=== PATIENT | female | born 1980 ===

== ENCOUNTER 2017-01-31 17:41 | Inpatient (IN) | payer OTHER ==
--- NOTE | 2017-01-31 19:44 | C.PDOC ---
History Of Present Illness 36 y/o female presents to ED with complaints of abdominal pain and vomiting since yesterday. Pt also with abnormal labs done 4 days ago; elevated total bilirubin, liver enzymes and alkaline phosphatase. Denies fever, chest pain, SOB or any other complaints. Time Seen by Provider: 01/31/17 19:43 Chief Complaint (Nursing): Abdominal Pain History Per: Patient History/Exam Limitations: no limitations Onset/Duration Of Symptoms: Hrs Current Symptoms Are (Timing): Still Present Severity: Moderate Pain Scale Rating Of: 5 Location Of Pain/Discomfort: Diffuse Radiation Of Pain To:: None Quality Of Discomfort: "Pain" Associated Symptoms: Vomiting. denies: Fever, Chest Pain Exacerbating Factors: None Alleviating Factors: None Recent travel outside of the [place]: No Past Medical History Reviewed: Historical Data, Nursing Documentation, Vital Signs Vital Signs: Last Vital Signs Temp 97.6 F 01/31/17 21:01 Pulse 65 01/31/17 21:01 Resp 18 01/31/17 21:01 BP 100/66 01/31/17 21:01 Pulse Ox 97 01/31/17 21:18 Family History: States: Unknown Family Hx - Social History Hx Tobacco Use: No Hx Alcohol Use: No Hx Substance Use: No - Immunization History Hx Tetanus Toxoid Vaccination: No Hx Influenza Vaccination: No Hx Pneumococcal Vaccination: No Review Of Systems Constitutional: Negative for: Fever, Chills Eyes: Negative for: Vision Change Cardiovascular: Negative for: Chest Pain Respiratory: Negative for: Shortness of Breath Gastrointestinal: Positive for: Vomiting, Abdominal Pain Genitourinary: Negative for: Dysuria Musculoskeletal: Negative for: Back Pain Skin: Positive for: Jaundice. Negative for: Rash, Lesions Neurological: Negative for: Weakness Psych: Negative for: Anxiety Physical Exam - Physical Exam Appears: Non-toxic, No Acute Distress Skin: Warm, Dry, No Rash Head: Atraumatic, Normacephalic Eye(s): bilateral: Normal Inspection, Scleral Icterus Oral Mucosa: Moist Neck: Supple Chest: Symmetrical Cardiovascular: Rhythm Regular, No Murmur Respiratory: No Rales, No Rhonchi, No Wheezing Gastrointestinal/Abdominal: Soft, Tenderness (midepigastric and RUQ), No Guarding, No Rebound Back: Normal Inspection Extremity: No Tenderness Extremity: Bilateral: Atraumatic Neurological/Psych: Oriented x3, Normal Speech Gait: Steady ED Course And Treatment - Laboratory Results Result Diagrams: 01/31/17 20:12 01/31/17 20:12 O2 Sat by Pulse Oximetry: 97 (room air) Pulse Ox Interpretation: Normal Disposition Discussed With DrYeny: Andi Dinero Comment: accepted the pt on his service and took over the care at 10:49 PM Doctor Will See Patient In The: ED Counseled Patient/Family Regarding: Studies Performed, Diagnosis - Disposition Disposition: HOSPITALIZED Disposition Time: 19:44 Condition: FAIR - POA Present On Arrival: Poor Glycemic Control - Clinical Impression Clinical Impression: Nausea, Jaundice, Abdominal pain, Cholelithiasis - Scribe Statement The provider has reviewed the documentation as recorded by the Duong Ramírez Provider Attestation: All medical record entries made by the Duong were at my direction and personally dictated by me. I have reviewed the chart and agree that the record accurately reflects my personal performance of the history, physical exam, medical decision making, and the department course for this patient. I have also personally directed, reviewed, and agree with the discharge instructions and disposition. Decision To Admit - Pt Status Changed To: Hospital Disposition Of: Inpatient - Admit Certification Admit to Inpatient:: After my assessment, the patient will require hospitalization for at least two midnights. This is because of the severity of symptoms shown, intensity of services needed, and/or the medical risk in this patient being treated as an outpatient. - InPatient: Physician Admission Certification:: After my assessment, the patient will require hospitalization for at least two midnights. This is because of the severity of symptoms shown, intensity of services needed, and/or the medical risk in this patient being treated as an outpatient. - . Bed Request Type: Regular Admitting Physician: Andi Dinero Patient Diagnosis: Nausea, Abdominal pain, Jaundice
[2017-01-31] MEDS ORDERED: Sodium Chloride 0.9% 1,000 ML IV ONE (19:45)
[2017-01-31 20:17] LABS: BASO # 0.1 K/uL (0.0-0.2); BASO % 0.9 % (0.0-2.0); EOS # 0.2 K/uL (0.0-0.7); EOS % 2.6 % (0.0-4.0); HEMATOCRIT 34.3 % (34.0-47.0); LYMPH # 1.3 K/uL (1.0-4.3); LYMPH % 17.3 % (20.0-40.0); MEAN CELL VOLUME 85.3 fL (81.0-99.0); MEAN CORPUSCULAR HEMOGLOBIN 28.9 pg (27.0-31.0); MEAN CORPUSCULAR HGB CONC 33.9 g/dL (33.0-37.0); MEAN PLATELET VOLUME 8.6 fL (7.2-11.7); MONO # 0.6 K/uL (0.0-0.8); MONO % 7.8 % (0.0-10.0); NRBC % 0.1 % (0.0-2.0); RED CELL DISTRIBUTION WIDTH 17.4 % (11.5-14.5); WHITE BLOOD COUNT 7.3 K/uL (4.8-10.8)
[2017-01-31 20:25] LABS: CHLORIDE 102 mmol/L (98-107)
[2017-01-31 20:26] LABS: POTASSIUM 3.6 mmol/L (3.6-5.2); SODIUM 139 mmol/L (132-148)
[2017-01-31 20:28] LABS: ALB/GLOB RATIO 1.1 (1.0-2.1); ALKALINE PHOSPHATASE 969 U/L (38-126); AST/SGOT 292 U/L (14-36); BILIRUBIN,TOTAL 8.1 mg/dL (0.2-1.3); BLOOD UREA NITROGEN 12 mg/dL (7-17); CARBON DIOXIDE 24 mmol/L (22-30); GFR AFRICAN-AMERICAN > 60; TOTAL PROTEIN 7.8 g/dL (6.3-8.3)
[2017-01-31 20:29] LABS: ALT/SGPT 307 U/L (9-52); CALCIUM 9.2 mg/dl (8.6-10.4); GLUCOSE,RANDOM 106 mg/dL (65-105)
[2017-01-31 20:42] LABS: RBC URINE 4 /hpf (0-3); URINE BACTERIA FEW (<OCC); URINE BILIRUBIN 2+ (NEGATIVE); URINE BLOOD NEGATIVE (NEGATIVE); URINE COLOR Amber (YELLOW); URINE GLUCOSE (UA) NORMAL (Normal); URINE KETONE 1+ mg/dL (NEGATIVE); URINE PROTEIN 1+ mg/dL (NEGATIVE); WBC URINE 8 /hpf (0-5)
[2017-01-31 20:43] LABS: URINE LEUKOCYTE ESTERASE TRACE Leu/uL (Negative)
--- NOTE | 2017-01-31 22:16 | US ---
EXAM: US Abdomen Limited, Right Upper Quadrant CLINICAL HISTORY: 36 years old, female; Pain; Abdominal pain; Generalized; Additional info: Ruq 8.1 bilirubin, elevated liver enzymes, pain TECHNIQUE: Real-time ultrasound of the right upper quadrant with image documentation. COMPARISON: No relevant prior studies available. FINDINGS: Liver: Hepatic steatosis. Liver measures 14.2 CM longitudinally. Moderate intrahepatic bile duct dilatation. Portal vein is patent with normal direction of flow. Gallbladder: Gallbladder wall measures 3 mm. Multiple stones within the gallbladder. Common bile duct: Common bile duct is dilated measuring 9.6 mm. Pancreas: Pancreatic duct is not dilated. Right kidney: Right kidney measures 9.8 CM longitudinally. No stones. IMPRESSION: 1. Cholelithiasis with intrahepatic and extrahepatic bile duct dilatation. Cannot exclude distal common duct stones. Consider MRCP for further evaluation. 2. Remainder of findings as above.
--- NOTE | 2017-02-01 01:07 | CP.PCM.HP ---
History of Present Illness - History of Present Illness History of Present Illness: CC: abdominal pain and rash HPI: Patient is a 36 year old female with no PMHx presents with 2 weeks of epigastric pain. Patient reports the pain began with no inciting event and was located in the middle of her abdomen in the epigastric region. Pain was a 6/10 pressure like in nature that was intermittent and worse with food. Patient also had associated nausea and a decreased appetite. 1 and a half weeks ago patient started to notice she was becoming jaundiced and was having pruritus. 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 She also noticed some linear ecchymosis on the sides of her thighs with no injury or trauma to the area that would come and go. The ecchymosis were like linear bands. Patient saw Dr Novak on Monday and had routine blood work and was given hydroxyzine and ciprofloxacin. On the day of admisison, patient had two episodes of nonbloody nonbilious emesis and worsening abdominal pain. Dr Novak also sent her in due to elevated total bilirubin, liver enzymes and alkaline phosphatase which was noted on her routine lab work from Monday. Patient denied fever, chills, diaphoresis, headaches, dizziness, lightheadedness, change in vision, change in hearing, sore throat, dysphagia, chest pain, palpitations, SOB , cough, hematemesis, diarrhea, constipation, hematochezia, melena, dysuria, leg pain, leg swelling, bleeding, travel, sick contacts, recent illness. 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 Patient denies having colonoscopy or EGD in the past. 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 Present on Admission - Present on Admission Any Indicators Present on Admission: No Review of Systems - Constitutional Constitutional: As Per HPI, Weight Loss, Weakness. absent: Chills, Fever, Headache, Increased Appetite - EENT Eyes: As Per HPI. absent: Change in Vision Ears: As Per HPI. absent: Tinnitus, Dizziness Nose/Mouth/Throat: As Per HPI. absent: Dysphagia, Sore Throat - Cardiovascular Cardiovascular: As Per HPI. absent: Chest Pain, Dyspnea, Dyspnea on Exertion, Edema - Respiratory Respiratory: As Per HPI. absent: Cough, Dyspnea on Exertion, Wheezing, Chest Congestion - Gastrointestinal Gastrointestinal: As Per HPI, Abdominal Pain, Nausea, Vomiting, Other (traffic circuit engineer colored stool). absent: Coffee Ground Emesis, Constipation, Diarrhea, Hematochezia, Loose Stools, Melena - Genitourinary Genitourinary: As Per HPI, Urinary Frequency. absent: Dysuria, Flank Pain, Hematuria, Pyuria, Nocturia - Musculoskeletal Musculoskeletal: As Per HPI, Back Pain. absent: Numbness, Tingling - Integumentary Integumentary: As Per HPI, Pruritus, Unusual Bruising, Jaundice - Neurological Neurological: As Per HPI. absent: Tingling, Weakness - Psychiatric Psychiatric: As Per HPI. absent: Anxiety, Depression - Endocrine Endocrine: As Per HPI. absent: Palpitations, Polydipsia, Polyphagia, Polyuria - Hematologic/Lymphatic Hematologic: As Per HPI, Easy Bruising. absent: Easy Bleeding, Lymphadenopathy Past Patient History - Infectious Disease Hx of Infectious Diseases: None - Past Medical History & Family History Past Medical History?: No - Past Social History Smoking Status: Never Smoked - CARDIAC Hx Cardiac Disorders: No - PULMONARY Hx Respiratory Disorders: No - NEUROLOGICAL Hx Neurological Disorder: No - HEENT Hx HEENT Problems: No - RENAL Hx Chronic Kidney Disease: No - ENDOCRINE/METABOLIC Hx Endocrine Disorders: No - HEMATOLOGICAL/ONCOLOGICAL Hx Blood Disorders: No - INTEGUMENTARY Hx Dermatological Problems: No - MUSCULOSKELETAL/RHEUMATOLOGICAL Hx Musculoskeletal Disorders: No Hx Falls: No - GASTROINTESTINAL Hx Gastrointestinal Disorders: No - GENITOURINARY/GYNECOLOGICAL Hx Genitourinary Disorders: No - PSYCHIATRIC Hx Substance Use: No - SURGICAL HISTORY Hx Surgeries: No - ANESTHESIA Hx Anesthesia: No Hx Anesthesia Reactions: No Hx Malignant Hyperthermia: No Meds Allergies/Adverse Reactions: Allergies Allergy/AdvReac Type Severity Reaction Status Date / Time No Known Allergies Allergy Verified 01/31/17 18:03 Physical Exam - Constitutional Appears: Non-toxic, No Acute Distress - Head Exam Head Exam: ATRAUMATIC, NORMAL INSPECTION, NORMOCEPHALIC - Eye Exam Eye Exam: EOMI, PERRL, Scleral icterus. absent: Conjunctival injection, Normal appearance Pupil Exam: NORMAL ACCOMODATION, PERRL - ENT Exam ENT Exam: Mucous Membranes Moist - Neck Exam Neck exam: Positive for: Full Rom, Normal Inspection. Negative for: Lymphadenopathy, Tenderness - Respiratory Exam Respiratory Exam: Clear to Auscultation Bilateral, NORMAL BREATHING PATTERN. absent: Accessory Muscle Use, Rales, Rhonchi, Wheezes, Respiratory Distress - Cardiovascular Exam Cardiovascular Exam: REGULAR RHYTHM, RRR, +S1, +S2. absent: Systolic Murmur - GI/Abdominal Exam GI & Abdominal Exam: Normal Bowel Sounds, Soft, Tenderness (midepigastric and RUQ). absent: Distended, Firm, Guarding, Rigid - Rectal Exam Rectal Exam: Deferred - Extremities Exam Extremities exam: Positive for: normal capillary refill, pedal pulses present. Negative for: pedal edema Additional comments: + ecchymosis on side of RLE and LLE worse on the right- tender to palpation - Back Exam Back exam: NORMAL INSPECTION. absent: CVA tenderness (L), CVA tenderness (R), rash noted, tenderness - Neurological Exam Neurological exam: Alert, CN II-XII Intact, Oriented x3 - Psychiatric Exam Psychiatric exam: Normal Affect, Normal Mood - Skin Skin Exam: Dry, Intact, Warm Additional comments: jaundiced Results - Vital Signs Recent Vital Signs: Last Vital Signs Temp 98.1 F 01/31/17 23:40 Pulse 73 01/31/17 23:40 Resp 20 01/31/17 23:40 BP 100/59 L 01/31/17 23:40 Pulse Ox 100 01/31/17 23:40 - Labs Result Diagrams: 01/31/17 20:12 01/31/17 20:12 Assessment & Plan - Assessment and Plan (Free Text) Assessment: 36 year old female with no PMHx presents with 2 weeks of epigastric pain Plan: Obstructive jaundice -U/S abdomen: cholelithiasis with intrahepatic and extrahepatic bile duct dilatation. Cannot exclude distal common duct stones. Consider MRCP for further eval. -TBili 8.2 -AST 292 -ALT 307 -Alk Phosphatase 969 -Rocephin 1gm ivpb daily -Benadryl 25mg ivp q6 prn pruritus -Protonix 40mg ivp daily -NPO -D51/2NS with 20KCl @ 100cc/hr -f/u CT Abdomen/pelvis -General surgery consult: Dr. Worthy -GI consult: Dr. Lama UTI -UA +leuk esterase and +bacteria -f/u urine culture -f/u blood culture -Rocephin 1gm ivpb daily PPX -NPO -D51/2NS with 20KCl @ 100cc/hr -Protonix 40mg ivp daily -VTE ppx held for possible preop -SCDs Case discussed with Dr. Bar Harrell PGY1
[2017-02-01] MEDS: Potassium Ch 20mEq in D5-1/2NS 1,000 ML IV SCH ×3 (02:00→21:10)
[2017-02-01 03:21] LABS: BASO # 0.1 K/uL (0.0-0.2); BASO % 0.8 % (0.0-2.0); EOS # 0.3 K/uL (0.0-0.7); EOS % 3.8 % (0.0-4.0); HEMATOCRIT 33.3 % (34.0-47.0); LYMPH # 1.3 K/uL (1.0-4.3); LYMPH % 19.1 % (20.0-40.0); MEAN CELL VOLUME 85.3 fL (81.0-99.0); MEAN CORPUSCULAR HEMOGLOBIN 28.3 pg (27.0-31.0); MEAN CORPUSCULAR HGB CONC 33.2 g/dL (33.0-37.0); MEAN PLATELET VOLUME 8.5 fL (7.2-11.7); MONO # 0.5 K/uL (0.0-0.8); MONO % 7.5 % (0.0-10.0); RED CELL DISTRIBUTION WIDTH 17.3 % (11.5-14.5)
[2017-02-01 03:47] LABS: CHLORIDE 106 mmol/L (98-107)
[2017-02-01 03:48] LABS: POTASSIUM 3.7 mmol/L (3.6-5.2); SODIUM 137 mmol/L (132-148)
[2017-02-01 03:50] LABS: ALB/GLOB RATIO 1.1 (1.0-2.1); AST/SGOT 244 U/L (14-36); BILIRUBIN,TOTAL 7.6 mg/dL (0.2-1.3); CARBON DIOXIDE 22 mmol/L (22-30); CHOLESTEROL 268 mg/dL (0-199); GFR AFRICAN-AMERICAN > 60
[2017-02-01 03:51] LABS: ALKALINE PHOSPHATASE 870 U/L (38-126); ALT/SGPT 261 U/L (9-52); BLOOD UREA NITROGEN 8 mg/dL (7-17); CALCIUM 8.7 mg/dl (8.6-10.4); GLUCOSE,RANDOM 97 mg/dL (65-105); PHOSPHOROUS 3.3 mg/dL (2.5-4.5)
--- NOTE | 2017-02-01 05:23 | CP.PCM.CON ---
<Astrid Byrd - Last Filed: 02/01/17 05:16> History of Present Illness - History of Present Illness History of Present Illness: Surgery Consult: Dr. Worthy Pt is a 36F with no PMHx who presented to with complaints of epigastric abdominal pain x 2 weeks. Pt states she started having epigastric/RUQ pain for the last 2 weeks that has gotten worse with time. She associates the pain with food intake and also admits to noticing dark urine and becoming jaundiced. Pt went to see her PMD on Monday and had blood work done which showed elevated T bili and liver enzymes. Pt was told to come to the ER. She admits to having nausea and 2 episodes of NBNB vomiting. She denies F/C, diarrhea, constipation, chest pain or SOB. In the ER, pt had an US of the GB which shows cholelithiasis with CBD measuring 9.6mm. Surgery consulted to evaluate. Currently, pt is resting comfortably in bed. States pain is slightly improved. Denies other complaints. PMHx: denies PSHx: denies SocialHx: denies smoking, EtOH/drugs NKDA Review of Systems - Review of Systems All systems: reviewed and no additional remarkable complaints except (as per HPI ) Past Patient History - Infectious Disease Hx of Infectious Diseases: None - Past Medical History & Family History Past Medical History?: No Past Family History: Reviewed and not pertinent - Past Social History Smoking Status: Never Smoked - CARDIAC Hx Cardiac Disorders: No - PULMONARY Hx Respiratory Disorders: No - NEUROLOGICAL Hx Neurological Disorder: No - HEENT Hx HEENT Problems: No - RENAL Hx Chronic Kidney Disease: No - ENDOCRINE/METABOLIC Hx Endocrine Disorders: No - HEMATOLOGICAL/ONCOLOGICAL Hx Blood Disorders: No - INTEGUMENTARY Hx Dermatological Problems: No - MUSCULOSKELETAL/RHEUMATOLOGICAL Hx Musculoskeletal Disorders: No Hx Falls: No - GASTROINTESTINAL Hx Gastrointestinal Disorders: No - GENITOURINARY/GYNECOLOGICAL Hx Genitourinary Disorders: No - PSYCHIATRIC Hx Substance Use: No - SURGICAL HISTORY Hx Surgeries: No - ANESTHESIA Hx Anesthesia: No Hx Anesthesia Reactions: No Hx Malignant Hyperthermia: No Meds Allergies/Adverse Reactions: Allergies Allergy/AdvReac Type Severity Reaction Status Date / Time No Known Allergies Allergy Verified 01/31/17 18:03 - Medications Medications: Current Medications Diphenhydramine HCl (Benadryl) 25 mg IVP Q6 PRN PRN Reason: Itching / Pruritus Ceftriaxone Sodium 1 gm/ (Sodium Chloride) 100 mls @ 100 mls/hr IVPB DAILY [facility] Potassium Chloride/Dextrose/Sod Cl (Potassium Chl 20 Meq In D5-1/2ns) 1,000 mls @ 100 mls/hr IV .Q10H [facility] Pantoprazole Sodium (Protonix Inj) 40 mg IVP DAILY [facility] Physical Exam - Constitutional Appears: Well, No Acute Distress - Head Exam Head Exam: ATRAUMATIC, NORMOCEPHALIC - Eye Exam Eye Exam: Scleral icterus - ENT Exam ENT Exam: Mucous Membranes Moist - Respiratory Exam Respiratory Exam: NORMAL BREATHING PATTERN - Cardiovascular Exam Cardiovascular Exam: RRR - GI/Abdominal Exam GI & Abdominal Exam: Guarding, Soft, Tenderness (RUG/epigastrium). absent: Distended, Rebound - Extremities Exam Extremities exam: Negative for: tenderness - Neurological Exam Neurological exam: Alert, Oriented x3 - Skin Skin Exam: Dry, Intact, Warm Results - Vital Signs Recent Vital Signs: Last Vital Signs Temp 98.2 F 02/01/17 05:00 Pulse 75 02/01/17 05:00 Resp 20 02/01/17 05:00 BP 123/60 02/01/17 05:00 Pulse Ox 99 02/01/17 05:00 - Labs Result Diagrams: 02/01/17 03:17 02/01/17 03:17 Labs: Laboratory Results - last 24 hr 02/01/17 02/01/17 02/01/17 03:17 03:17 03:17 WBC 7.0 RBC 3.90 Hgb 11.0 Hct 33.3 L MCV 85.3 MCH 28.3 MCHC 33.2 RDW 17.3 H Plt Count 329 MPV 8.5 Neut % (Auto) 68.8 Lymph % (Auto) 19.1 L [place] % (Auto) 7.5 Eos % (Auto) 3.8 Baso % (Auto) 0.8 Neut # 4.8 Lymph # 1.3 [place] # 0.5 Eos # 0.3 Baso # 0.1 Sodium 137 Potassium 3.7 Chloride 106 Carbon Dioxide 22 Anion Gap 12 BUN 8 Creatinine 0.5 L Est GFR ( Amer) > 60 Est GFR (Non-Af Amer) > 60 Random Glucose 97 Hemoglobin A1c 4.8 Calcium 8.7 Phosphorus 3.3 Magnesium 2.0 Total Bilirubin 7.6 H AST 244 H ALT 261 H Alkaline Phosphatase 870 H Total Protein 7.0 Albumin 3.7 Globulin 3.4 Albumin/Globulin Ratio 1.1 Triglycerides 111 D Cholesterol 268 H LDL Cholesterol Direct 147 H HDL Cholesterol 47 - Imaging and Cardiology US - abdomen Status: Image reviewed by me, Report reviewed by me Assessment & Plan - Assessment and Plan (Free Text) Assessment: 36F with cholelithiasis and probable choledocholithiasis Plan: - NPO - IVF, IV ABX - MRCP to eval biliary tree - GI consult - will follow - d/w Dr. Zaynab Byrd, PGY-2 Surgery <Alberto Worthy - Last Filed: 02/03/17 14:14> Meds - Medications Medications: Current Medications Diphenhydramine HCl (Benadryl) 25 mg IVP Q6 PRN PRN Reason: Itching / Pruritus Potassium Chloride/Dextrose/Sod Cl (Potassium Chl 20 Meq In D5-1/2ns) 1,000 mls @ 100 mls/hr IV .Q10H [facility] Last Admin: 02/03/17 03:01 Dose: Not Given Piperacillin Sod/Tazobactam (Sod 3.375 gm/ Sodium Chloride) 100 mls @ 200 mls/ hr IVPB Q8H [facility] [place] Last Admin: 02/03/17 05:15 Dose: 200 mls/hr Pantoprazole Sodium (Protonix Inj) 40 mg IVP DAILY [facility] [place] Last Admin: 02/03/17 10:47 Dose: 40 mg Saccharomyces Boulardii (Florastor) 250 mg PO BID [facility] [place] Last Admin: 02/03/17 10:47 Dose: 250 mg Results - Vital Signs Recent Vital Signs: Last Vital Signs Temp 97.9 F 02/03/17 08:00 Pulse 65 02/03/17 08:00 Resp 19 02/03/17 08:00 BP 104/66 02/03/17 08:00 Pulse Ox 98 02/03/17 08:00 - Labs Result Diagrams: 02/03/17 08:36 02/03/17 08:36 Labs: Laboratory Results - last 24 hr 02/01/17 02/03/17 02/03/17 14:45 04:09 08:36 WBC 7.6 D RBC 3.63 L Hgb 10.6 L Hct 31.6 L MCV 86.9 MCH 29.3 MCHC 33.7 RDW 17.8 H Plt Count 352 MPV 9.5 Neut % (Auto) 86.4 H Lymph % (Auto) 9.8 L [place] % (Auto) 3.6 Eos % (Auto) 0.0 Baso % (Auto) 0.2 Neut # 6.6 Lymph # 0.7 L [place] # 0.3 Eos # 0.0 Baso # 0.0 Neutrophils % (Manual) 86 H Band Neutrophils % 4 H Lymphocytes % (Manual) 7 L Monocytes % (Manual) 3 Platelet Estimate Normal Hypochromasia (manual) Slight Anisocytosis (manual) Slight PT INR Sodium Potassium Chloride Carbon Dioxide Anion Gap BUN Creatinine Est GFR ( Amer) Est GFR (Non-Af Amer) Random Glucose Calcium Phosphorus Magnesium Total Bilirubin AST ALT Alkaline Phosphatase Total Protein Albumin Globulin Albumin/Globulin Ratio Urine HCG, Qual Negative Smooth Muscle Ab Titer 1:20 H Anti-Smooth Muscle Ab Positive H 02/03/17 02/03/17 08:36 08:36 WBC RBC Hgb Hct MCV MCH MCHC RDW Plt Count MPV Neut % (Auto) Lymph % (Auto) [place] % (Auto) Eos % (Auto) Baso % (Auto) Neut # Lymph # [place] # Eos # Baso # Neutrophils % (Manual) Band Neutrophils % Lymphocytes % (Manual) Monocytes % (Manual) Platelet Estimate Hypochromasia (manual) Anisocytosis (manual) PT 12.3 H INR 1.1 Sodium 136 Potassium 4.0 Chloride 101 Carbon Dioxide 23 Anion Gap 16 BUN 12 Creatinine 0.5 L Est GFR ( Amer) > 60 Est GFR (Non-Af Amer) > 60 Random Glucose 134 H Calcium 8.7 Phosphorus 2.9 Magnesium 1.8 Total Bilirubin 4.3 H AST 128 H D ALT 177 H D Alkaline Phosphatase 701 H Total Protein 7.0 Albumin 3.6 Globulin 3.4 Albumin/Globulin Ratio 1.0 Urine HCG, Qual Smooth Muscle Ab Titer Anti-Smooth Muscle Ab Attending/Attestation - Attestation I have personally seen and examined this patient.: Yes I have fully participated in the care of the patient.: Yes I have reviewed all pertinent clinical information: Yes Notes (Text): 02/03/17 14:13 Pt was seen and examined at bedside on 02/01/17 Agree with above note and assessment Pt with acute cholecystitis and cholelithiasis and CBD Stone MRCP GI consult NPO, IVF C/w IV antibiotics Plan d.w pt in detail Risk and benefit explained in detail
--- NOTE | 2017-02-01 09:51 | CP.PCM.CON ---
History of Present Illness - History of Present Illness History of Present Illness: 36 yo female admitted with epigastric/ruq pain and vomiting. Sono revealed gallstones and dilated CBD. Lft's are elevated. Patient says she is aware fo stone in gallbladder in the past but not advised for surgery. No other medical history. Review of Systems - Cardiovascular Cardiovascular: absent: Chest Pain, Chest Pain at Rest, Dyspnea, Orthopnea - Respiratory Respiratory: absent: Cough, Chest Congestion - Gastrointestinal Gastrointestinal: As Per HPI, Abdominal Pain, Vomiting. absent: Constipation, Cramping, Dysphagia, Hematemesis, Melena, Odynophagia Past Patient History - Infectious Disease Hx of Infectious Diseases: None - Past Medical History & Family History Past Medical History?: No Past Family History: Reviewed and not pertinent - Past Social History Smoking Status: Never Smoked Alcohol: None Drugs: Denies - CARDIAC Hx Cardiac Disorders: No - PULMONARY Hx Respiratory Disorders: No - NEUROLOGICAL Hx Neurological Disorder: No - HEENT Hx HEENT Problems: No - RENAL Hx Chronic Kidney Disease: No - ENDOCRINE/METABOLIC Hx Endocrine Disorders: No - HEMATOLOGICAL/ONCOLOGICAL Hx Blood Disorders: No - INTEGUMENTARY Hx Dermatological Problems: No - MUSCULOSKELETAL/RHEUMATOLOGICAL Hx Musculoskeletal Disorders: No Hx Falls: No - GASTROINTESTINAL Hx Gastrointestinal Disorders: No - GENITOURINARY/GYNECOLOGICAL Hx Genitourinary Disorders: No - PSYCHIATRIC Hx Substance Use: No - SURGICAL HISTORY Hx Surgeries: No - ANESTHESIA Hx Anesthesia: No Hx Anesthesia Reactions: No Hx Malignant Hyperthermia: No Meds Allergies/Adverse Reactions: Allergies Allergy/AdvReac Type Severity Reaction Status Date / Time No Known Allergies Allergy Verified 01/31/17 18:03 - Medications Medications: Current Medications Diphenhydramine HCl (Benadryl) 25 mg IVP Q6 PRN PRN Reason: Itching / Pruritus Ceftriaxone Sodium 1 gm/ (Sodium Chloride) 100 mls @ 100 mls/hr IVPB DAILY [facility] Potassium Chloride/Dextrose/Sod Cl (Potassium Chl 20 Meq In D5-1/2ns) 1,000 mls @ 100 mls/hr IV .Q10H [facility] Last Admin: 02/01/17 02:00 Dose: 100 mls/hr Pantoprazole Sodium (Protonix Inj) 40 mg IVP DAILY [facility] Physical Exam - Constitutional Appears: No Acute Distress - Head Exam Head Exam: ATRAUMATIC, NORMOCEPHALIC - Eye Exam Eye Exam: EOMI, PERRL - Respiratory Exam Respiratory Exam: NORMAL BREATHING PATTERN - Cardiovascular Exam Cardiovascular Exam: REGULAR RHYTHM, +S1 - GI/Abdominal Exam GI & Abdominal Exam: Normal Bowel Sounds, Soft, Tenderness Additional comments: RUQ tenderness and guarding to deep palpation - Rectal Exam Rectal Exam: Deferred - Extremities Exam Extremities exam: Positive for: normal inspection - Neurological Exam Neurological exam: Alert, Oriented x3 - Psychiatric Exam Psychiatric exam: Normal Affect, Normal Mood - Skin Skin Exam: Dry, Warm Results - Vital Signs Recent Vital Signs: Last Vital Signs Temp 98.7 F 02/01/17 07:50 Pulse 72 02/01/17 07:50 Resp 16 02/01/17 07:50 BP 105/67 02/01/17 07:50 Pulse Ox 97 02/01/17 07:50 - Labs Result Diagrams: 02/01/17 03:17 02/01/17 03:17 Labs: Laboratory Results - last 24 hr 02/01/17 02/01/17 02/01/17 03:17 03:17 03:17 WBC 7.0 RBC 3.90 Hgb 11.0 Hct 33.3 L MCV 85.3 MCH 28.3 MCHC 33.2 RDW 17.3 H Plt Count 329 MPV 8.5 Neut % (Auto) 68.8 Lymph % (Auto) 19.1 L [place] % (Auto) 7.5 Eos % (Auto) 3.8 Baso % (Auto) 0.8 Neut # 4.8 Lymph # 1.3 [place] # 0.5 Eos # 0.3 Baso # 0.1 Sodium 137 Potassium 3.7 Chloride 106 Carbon Dioxide 22 Anion Gap 12 BUN 8 Creatinine 0.5 L Est GFR ( Amer) > 60 Est GFR (Non-Af Amer) > 60 Random Glucose 97 Hemoglobin A1c 4.8 Calcium 8.7 Phosphorus 3.3 Magnesium 2.0 Total Bilirubin 7.6 H AST 244 H ALT 261 H Alkaline Phosphatase 870 H Total Protein 7.0 Albumin 3.7 Globulin 3.4 Albumin/Globulin Ratio 1.1 Triglycerides 111 D Cholesterol 268 H LDL Cholesterol Direct 147 H HDL Cholesterol 47 - Imaging and Cardiology US - abdomen Status: Image reviewed by me, Report reviewed by me Assessment & Plan (1) Abnormal transaminases Status: Acute (2) RUQ pain Assessment and Plan: Pain and lab findings likely due to cholelithiasis/cholecystitis and possible passage of stone into the CBD. Agree with MRCP to evaluate duct Needs surgical consult for [place] with [facility] If MRCP is positive would also consult Dr Gordon for interventional GI/ERCP if needed. (would call now to make him aware of case) Monitor LFTs Consider addition of antibiotics. NPO Status: Acute (3) Cholelithiasis Status: Acute
--- NOTE | 2017-02-01 12:49 | CP.PCM.PN ---
<Lizzeth Quinonez DO - Last Filed: 02/01/17 13:34> Subjective - Date & Time of Evaluation Date of Evaluation: 02/01/17 Time of Evaluation: 07:50 - Subjective Subjective: PGY1 Progress note for Dr. Kidd Patient seen and examined. Patient complaining of epigastric pain but states she feels better than when she arrived at the hospital. Patient reports 2 week history of abdominal pain that had gotten worse yesterday and prompted ER visit. Patient also reports urinary frequency but denies dysuria for 1 week. Objective - Vital Signs/Intake and Output Vital Signs (last 24 hours): Temp Pulse Resp BP Pulse Ox 98.7 F 72 16 105/67 97 02/01/17 07:50 02/01/17 07:50 02/01/17 07:50 02/01/17 07:50 02/01/17 07:50 - Medications Medications: Current Medications Diphenhydramine HCl (Benadryl) 25 mg IVP Q6 PRN PRN Reason: Itching / Pruritus Ceftriaxone Sodium 1 gm/ (Sodium Chloride) 100 mls @ 100 mls/hr IVPB DAILY [facility] Last Admin: 02/01/17 10:53 Dose: 100 mls/hr Potassium Chloride/Dextrose/Sod Cl (Potassium Chl 20 Meq In D5-1/2ns) 1,000 mls @ 100 mls/hr IV .Q10H [facility] Last Admin: 02/01/17 11:30 Dose: Not Given Pantoprazole Sodium (Protonix Inj) 40 mg IVP DAILY [facility] Last Admin: 02/01/17 10:54 Dose: 40 mg - Labs Labs: 02/01/17 03:17 02/01/17 03:17 PT 11.4 SECONDS (9.7-12.2) 01/31/17 20:12 INR 1.0 01/31/17 20:12 APTT 37 SECONDS (21-34) H 01/31/17 20:12 - Constitutional Appears: Non-toxic, No Acute Distress - Head Exam Head Exam: ATRAUMATIC, NORMOCEPHALIC - Eye Exam Eye Exam: EOMI, Scleral icterus - ENT Exam ENT Exam: Mucous Membranes Dry Additional comments: jaundice - Respiratory Exam Respiratory Exam: Clear to Ausculation Bilateral, NORMAL BREATHING PATTERN - Cardiovascular Exam Cardiovascular Exam: +S1, +S2 - GI/Abdominal Exam GI & Abdominal Exam: Soft, Tenderness (epigastric), Normal Bowel Sounds - Extremities Exam Extremities Exam: absent: Pedal Edema - Neurological Exam Neurological Exam: Alert, Awake - Psychiatric Exam Psychiatric exam: Normal Affect - Skin Skin Exam: Dry, Warm Assessment and Plan - Assessment and Plan (Free Text) Assessment: Obstructive jaundice -U/S abdomen: cholelithiasis with intrahepatic and extrahepatic bile duct dilatation. Cannot exclude distal common duct stones. CBD 9.6mm. Consider MRCP for further eval. -TBili 8.2 on admission, now 7.6 -AST 292 on admission, now 244 -ALT 307 on admission, now 261 -Alk Phosphatase 969 on admission, now 870 -Abx changed to zosyn as per GI -Benadryl 25mg ivp q6 prn pruritus -Protonix 40mg ivp daily -D51/2NS with 20KCl @ 100cc/hr -CT Abdomen/pelvis appears to show large calcified stone, official read pending -General surgery consult: Dr. Worthy MRCP cancelled in light of CT findings -GI consult: Dr. Mann- agree with MRCP, recommend consult for Dr. Gordon- plan for EUS/ ERCP tomorrow at [facility] -check hepatitis panel, ELROY, AMA, SMA, LKM-Ab, IgG UTI -UA +leuk esterase and +bacteria -f/u urine culture -f/u blood culture PPX -NPO after MN for ERCP -D51/2NS with 20KCl @ 100cc/hr -Protonix 40mg ivp daily -SCDs <Ines Kidd V - Last Filed: 02/01/17 20:08> Objective - Vital Signs/Intake and Output Vital Signs (last 24 hours): Temp Pulse Resp BP Pulse Ox 98 F 59 L 18 102/61 98 02/01/17 16:00 02/01/17 16:00 02/01/17 16:00 02/01/17 16:00 02/01/17 16:00 Intake and Output: 02/01/17 02/02/17 18:59 06:59 Intake Total 800 Balance 800 - Medications Medications: Current Medications Diphenhydramine HCl (Benadryl) 25 mg IVP Q6 PRN PRN Reason: Itching / Pruritus Potassium Chloride/Dextrose/Sod Cl (Potassium Chl 20 Meq In D5-1/2ns) 1,000 mls @ 100 mls/hr IV .Q10H [facility] Last Admin: 02/01/17 11:30 Dose: Not Given Piperacillin Sod/Tazobactam (Sod 3.375 gm/ Sodium Chloride) 100 mls @ 200 mls/ hr IVPB Q8H [facility] Last Admin: 02/01/17 14:49 Dose: 200 mls/hr Pantoprazole Sodium (Protonix Inj) 40 mg IVP DAILY [facility] Last Admin: 02/01/17 10:54 Dose: 40 mg Pneumococcal Polyvalent Vaccine (Pneumovax 23 Vaccine) 0.5 ml IM .ONCE ONE Stop: 02/03/17 10:01 Saccharomyces Boulardii (Florastor) 250 mg PO BID [facility] - Labs Labs: 02/01/17 03:17 02/01/17 03:17 PT 11.4 SECONDS (9.7-12.2) 01/31/17 20:12 INR 1.0 01/31/17 20:12 APTT 37 SECONDS (21-34) H 01/31/17 20:12 Attending/Attestation - Attestation I have personally seen and examined this patient.: Yes I have fully participated in the care of the patient.: Yes I have reviewed all pertinent clinical information, including history, physical exam and plan: Yes Notes (Text): Patient seen, examined and case discussed with day-time resident. Patient seen at bedside this morning reporting pruritus, new-onset obstructive jaundice, epigastric pain, and associated frequency about one week duration. Discussed with GI, Dr Mann, recommend for EUS/ERCP evaluation by Dr. Gordon Patient evaluated by Dr. Gordon's GI group later today, will go for an ERCP/EUS tomorrow at [facility] with possible lithothripsy General surgery (Dr. Worthy) on board-->evaluated the patient earlier this morning Assessment/Plan 1) Obstructive jaundice; Hyperbilirubinemia; Choledocholithasis * General surgery (Dr. Worthy) on help appreciated * GI (Dr. Mann) on consult-->help appreciated * GI (Dr. Gordon) on consult-->help appreciated * U/S abdomen (01/31/17): cholelithiasis with intrahepatic and extrahepatic bile duct dilatation. Cannot exclude distal common duct stones. CBD 9.6mm. Consider MRCP for further eval. Hepatic steatosis. Patient portal vein * CT Abdomen/Pelvis (02/01/17): multiple gallstones without CT evidence of acute cholecystitits. 1.7 cm stone seen at the cystic duct or at the mid portion of the common bile duct, mild to moderate intrahepatic biliary ductal dilatation. Otherwise no evidence of acute pathology in the abdomen/pelvis * Serologies: hepatitis panel: negative, ELROY, AMA, SMA, LKM-Ab, IgG * Benadryl 25mg ivp q6 prn pruritus * Protonix 40mg ivp daily * D51/2NS with 20KCl @ 100cc/hr 2) Frequency * UA +leuk esterase and +bacteria * f/u urine culture * f/u blood culture * Zosyn 3.375 IV Q 8 hours (active since 02/01/17) * Florastor 250mg PO bid 3) Transaminitis * U/S abdomen (01/31/17): cholelithiasis with intrahepatic and extrahepatic bile duct dilatation. Cannot exclude distal common duct stones. CBD 9.6mm. Consider MRCP for further eval. Hepatic steatosis. Patient portal vein * CT Abdomen/Pelvis (02/01/17): multiple gallstones without CT evidence of acute cholecystitits. 1.7 cm stone seen at the cystic duct or at the mid portion of the common bile duct, mild to moderate intrahepatic biliary ductal dilatation. Otherwise no evidence of acute pathology in the abdomen/pelvis * Serologies: hepatitis panel: negative, ELROY, AMA, SMA, LKM-Ab, IgG * Benadryl 25mg ivp q6 prn pruritus 4) Dyslipidemia * Will need diet and exercise modifications and re-evaluate lipid panel in 3-4 months 5) PPX * NPO after MN for ERCP/EUS/lithotripsy at [facility] * D51/2NS with 20KCl @ 100cc/hr * Protonix 40mg ivp daily * SCDs
--- NOTE | 2017-02-01 13:15 | CP.PCM.CON ---
<Arcadio Mcghee - Last Filed: 02/01/17 13:27> History of Present Illness - History of Present Illness History of Present Illness: PGY4 GI Fellow Consult Note Patient is a 36yo female with PMHx significant for anxiety/depression and gallstones who presented to the hospital with diffuse itching and abdominal pain. Two weeks ago patient states she suddenly developed diffuse pruritus and noticed she had jaundice but did not use any medications to alleviate her symptoms. It wasn't until 24H prior to admission that she developed epigastric pain, nausea and nonbilious vomiting. Patient does note that in the interim she had noted dark colored urine and visited her PCP, Dr Novak to be evaluated for this constellation of symptoms. He performed routine blood work with revealed a hyperbilirubinemia and given her new onset of pain, requested she come to the ED for further evaluation. She is noted to have hyperbilirubinemia and elevated LFTs (mixed picture) with gallstones and dilated CBD on U/S. There is no choledocolithiasis noted on U/S. Our service is consulted for evaluation for EUS /ERCP. PMHx: See HPI PSHx: Denies FHx: Father - kidney and lung disease, ; denies family hx of cancer or GI issues Social: Denies tobacco, EtOH or illicit drug use Endo: No prior endoscopic evaluations Review of Systems - Constitutional Constitutional: absent: Anorexia, Chills, Fever - EENT Eyes: absent: Change in Vision Nose/Mouth/Throat: absent: Sore Throat - Cardiovascular Cardiovascular: absent: Chest Pain, Dyspnea, Edema - Respiratory Respiratory: absent: Cough, Dyspnea, Excessive Mucous Production - Gastrointestinal Gastrointestinal: Abdominal Pain, Nausea, Vomiting. absent: Bloating, Constipation, Cramping, Diarrhea, Dyspepsia, Dysphagia, Heartburn, Hematemesis, Hematochezia, Loose Stools, Melena, Odynophagia - Genitourinary Genitourinary: Other (dark colored urine). absent: Dysuria, Urinary Frequency, Urinary Urgency - Musculoskeletal Musculoskeletal: absent: Back Pain, Neck Pain - Integumentary Integumentary: absent: New Lesions, Rash - Neurological Neurological: absent: Dizziness, Numbness, Focal Weakness - Psychiatric Psychiatric: Anxiety. absent: Depression - Endocrine Endocrine: absent: Polydipsia, Polyphagia, Polyuria - Hematologic/Lymphatic Hematologic: absent: Easy Bleeding, Easy Bruising, Lymphadenopathy Past Patient History - Infectious Disease Hx of Infectious Diseases: None - Past Medical History & Family History Past Medical History?: No Past Family History: Reviewed and not pertinent - Past Social History Smoking Status: Never Smoked Alcohol: None Drugs: Denies - CARDIAC Hx Cardiac Disorders: No - PULMONARY Hx Respiratory Disorders: No - NEUROLOGICAL Hx Neurological Disorder: No - HEENT Hx HEENT Problems: No - RENAL Hx Chronic Kidney Disease: No - ENDOCRINE/METABOLIC Hx Endocrine Disorders: No - HEMATOLOGICAL/ONCOLOGICAL Hx Blood Disorders: No - INTEGUMENTARY Hx Dermatological Problems: No - MUSCULOSKELETAL/RHEUMATOLOGICAL Hx Musculoskeletal Disorders: No Hx Falls: No - GASTROINTESTINAL Hx Gastrointestinal Disorders: No - GENITOURINARY/GYNECOLOGICAL Hx Genitourinary Disorders: No - PSYCHIATRIC Hx Substance Use: No - SURGICAL HISTORY Hx Surgeries: No - ANESTHESIA Hx Anesthesia: No Hx Anesthesia Reactions: No Hx Malignant Hyperthermia: No Meds Allergies/Adverse Reactions: Allergies Allergy/AdvReac Type Severity Reaction Status Date / Time No Known Allergies Allergy Verified 01/31/17 18:03 - Medications Medications: Current Medications Diphenhydramine HCl (Benadryl) 25 mg IVP Q6 PRN PRN Reason: Itching / Pruritus Ceftriaxone Sodium 1 gm/ (Sodium Chloride) 100 mls @ 100 mls/hr IVPB DAILY [facility] Last Admin: 02/01/17 10:53 Dose: 100 mls/hr Potassium Chloride/Dextrose/Sod Cl (Potassium Chl 20 Meq In D5-1/2ns) 1,000 mls @ 100 mls/hr IV .Q10H [facility] Last Admin: 02/01/17 11:30 Dose: Not Given Pantoprazole Sodium (Protonix Inj) 40 mg IVP DAILY [facility] Last Admin: 02/01/17 10:54 Dose: 40 mg Physical Exam - Constitutional Appears: No Acute Distress - Eye Exam Eye Exam: EOMI, PERRL, Scleral icterus - ENT Exam ENT Exam: Mucous Membranes Moist - Respiratory Exam Respiratory Exam: Clear to Auscultation Bilateral. absent: Rales, Rhonchi, Wheezes - Cardiovascular Exam Cardiovascular Exam: RRR, +S1, +S2 - GI/Abdominal Exam GI & Abdominal Exam: Normal Bowel Sounds, Soft, Tenderness (epigastric, RUQ). absent: Distended, Firm, Guarding, Organomegaly, Rigid - Extremities Exam Extremities exam: Positive for: normal inspection. Negative for: pedal edema - Neurological Exam Neurological exam: Alert, Oriented x3 - Psychiatric Exam Psychiatric exam: Normal Affect, Normal Mood - Skin Skin Exam: Dry, Warm Additional comments: jaundice Results - Vital Signs Recent Vital Signs: Last Vital Signs Temp 98.7 F 02/01/17 07:50 Pulse 72 02/01/17 07:50 Resp 16 02/01/17 07:50 BP 105/67 02/01/17 07:50 Pulse Ox 97 02/01/17 07:50 - Labs Result Diagrams: 02/01/17 03:17 02/01/17 03:17 Labs: Laboratory Results - last 24 hr 02/01/17 02/01/17 02/01/17 03:17 03:17 03:17 WBC 7.0 RBC 3.90 Hgb 11.0 Hct 33.3 L MCV 85.3 MCH 28.3 MCHC 33.2 RDW 17.3 H Plt Count 329 MPV 8.5 Neut % (Auto) 68.8 Lymph % (Auto) 19.1 L [place] % (Auto) 7.5 Eos % (Auto) 3.8 Baso % (Auto) 0.8 Neut # 4.8 Lymph # 1.3 [place] # 0.5 Eos # 0.3 Baso # 0.1 Sodium 137 Potassium 3.7 Chloride 106 Carbon Dioxide 22 Anion Gap 12 BUN 8 Creatinine 0.5 L Est GFR ( Amer) > 60 Est GFR (Non-Af Amer) > 60 Random Glucose 97 Hemoglobin A1c 4.8 Calcium 8.7 Phosphorus 3.3 Magnesium 2.0 Total Bilirubin 7.6 H AST 244 H ALT 261 H Alkaline Phosphatase 870 H Total Protein 7.0 Albumin 3.7 Globulin 3.4 Albumin/Globulin Ratio 1.1 Triglycerides 111 D Cholesterol 268 H LDL Cholesterol Direct 147 H HDL Cholesterol 47 Assessment & Plan - Assessment and Plan (Free Text) Assessment: Patient is a 36yo female with PMHx significant for anxiety/depression and gallstones who presented to the hospital with diffuse itching and abdominal pain. -Elevated LFTs and abdominal pain c/w obstructive jaundice 2/2 choledocolithiasis; r/o other obstructive lesion/malignancy -Cholelithiasis -Pruritus 2/2 above Plan: -U/S noted -CT A/P reviewed; appears to have large calcified stone in mid-CBD -MRCP cancelled in light of above findings -Recommend changing antibiotic coverage to Zosyn -Check Hepatitis serologies, ELROY, AMA, SMA, LKM-Ab, IgG level -NPO past MN with plan for EUS/ERCP tomorrow at [facility] -Analgesia/antiemetics PRN per primary service -Benadryl or atarax PRN for pruritus - Date & Time Date: 02/01/17 Time: 13:00 <Ward Bennett - Last Filed: 02/01/17 15:47> Meds - Medications Medications: Current Medications Diphenhydramine HCl (Benadryl) 25 mg IVP Q6 PRN PRN Reason: Itching / Pruritus Potassium Chloride/Dextrose/Sod Cl (Potassium Chl 20 Meq In D5-1/2ns) 1,000 mls @ 100 mls/hr IV .Q10H [facility] Last Admin: 02/01/17 11:30 Dose: Not Given Piperacillin Sod/Tazobactam (Sod 3.375 gm/ Sodium Chloride) 100 mls @ 200 mls/ hr IVPB Q8H [facility] Last Admin: 02/01/17 14:49 Dose: 200 mls/hr Pantoprazole Sodium (Protonix Inj) 40 mg IVP DAILY [facility] Last Admin: 02/01/17 10:54 Dose: 40 mg Results - Vital Signs Recent Vital Signs: Last Vital Signs Temp 98.7 F 02/01/17 07:50 Pulse 72 02/01/17 07:50 Resp 16 02/01/17 07:50 BP 105/67 02/01/17 07:50 Pulse Ox 97 02/01/17 07:50 - Labs Result Diagrams: 02/01/17 03:17 02/01/17 03:17 Labs: Laboratory Results - last 24 hr 02/01/17 02/01/17 02/01/17 03:17 03:17 03:17 WBC 7.0 RBC 3.90 Hgb 11.0 Hct 33.3 L MCV 85.3 MCH 28.3 MCHC 33.2 RDW 17.3 H Plt Count 329 MPV 8.5 Neut % (Auto) 68.8 Lymph % (Auto) 19.1 L [place] % (Auto) 7.5 Eos % (Auto) 3.8 Baso % (Auto) 0.8 Neut # 4.8 Lymph # 1.3 [place] # 0.5 Eos # 0.3 Baso # 0.1 Sodium 137 Potassium 3.7 Chloride 106 Carbon Dioxide 22 Anion Gap 12 BUN 8 Creatinine 0.5 L Est GFR ( Amer) > 60 Est GFR (Non-Af Amer) > 60 Random Glucose 97 Hemoglobin A1c 4.8 Calcium 8.7 Phosphorus 3.3 Magnesium 2.0 Total Bilirubin 7.6 H AST 244 H ALT 261 H Alkaline Phosphatase 870 H Total Protein 7.0 Albumin 3.7 Globulin 3.4 Albumin/Globulin Ratio 1.1 Triglycerides 111 D Cholesterol 268 H LDL Cholesterol Direct 147 H HDL Cholesterol 47 IgG 02/01/17 14:45 WBC RBC Hgb Hct MCV MCH MCHC RDW Plt Count MPV Neut % (Auto) Lymph % (Auto) [place] % (Auto) Eos % (Auto) Baso % (Auto) Neut # Lymph # [place] # Eos # Baso # Sodium Potassium Chloride Carbon Dioxide Anion Gap BUN Creatinine Est GFR ( Amer) Est GFR (Non-Af Amer) Random Glucose Hemoglobin A1c Calcium Phosphorus Magnesium Total Bilirubin AST ALT Alkaline Phosphatase Total Protein Albumin Globulin Albumin/Globulin Ratio Triglycerides Cholesterol LDL Cholesterol Direct HDL Cholesterol IgG 1023.7 Attending/Attestation - Attestation I have personally seen and examined this patient.: Yes I have fully participated in the care of the patient.: Yes I have reviewed all pertinent clinical information: Yes Notes (Text): 02/01/17 15:41 I have seen and examined patient with GI fellow. Agree with above documentation with the following additions. In brief, this is a 36 year old female with past medical history of depression who is sent to hospital by PMD after noting jaundice and elevated LFTs on outpatient bloodwork. Her symptoms began two weeks ago with her primary complaint being sudden onset intense pruritis and fatigue. Yesterday she developed new onset abdominal pain which she describes in epigastric region, non-radiating and associated with multiple episodes of non-bloody emesis. She also noted recent dark colored urine. She denies similar prior episodes, though she has been notified of gallstones in past. She denies sick contacts, weight loss, fever/chills. No prior endoscopic evaluation. Obstructive jaundice Pruritis Abdominal pain Transaminitis - CT imaging reviewed by me showing large stone in mid-cbd consistent with choledocholithiasis - Clear liquid diet as tolerated - Continue with antibiotic therapy, check blood culture results - Continue to monitor LFTs, fractionate bilirubin - Obtain hepatitis and autoimmune panel testing given atypical initial presentation of pruritis - Plan for EUS/ERCP +/- lithotripsy (given large size of stone visualized) at [place] tomorrow with Dr. Gordon. NPO after midnight.
--- NOTE | 2017-02-01 13:22 | CT ---
PROCEDURE: CT Abdomen and Pelvis without intravenous contrast HISTORY: obstructive jaundice COMPARISON: Comparison is made to the previous ultrasound dated 01/31/2017 TECHNIQUE: Axial and reformatted coronal and sagittal CT images of the abdomen and pelvis were obtained without IV or oral contrast administration.. Contrast Dose: 0 Radiation dose: Total exam DLP = 372.14 mGy-cm. This CT exam was performed using one or more of the following dose reduction techniques: Automated exposure control, adjustment of the mA and/or kV according to patient size, and/or use of iterative reconstruction technique. FINDINGS: LOWER THORAX: Unremarkable. LIVER: Mild to moderate intrahepatic biliary ductal dilatation. No evidence of mass lesion in the liver in this noncontrast study. GALLBLADDER AND BILE DUCTS: Multiple gallstones. There is approximately 1.7 centimeters stone at the proximal to mid common bile duct. The distal CBD is not dilated. PANCREAS: Unremarkable. No gross lesion or ductal dilatation. SPLEEN: Unremarkable. ADRENALS: Unremarkable. No mass. KIDNEYS AND URETERS: Unremarkable. No hydronephrosis. No solid mass. VASCULATURE: Unremarkable. No aortic aneurysm. BOWEL: Unremarkable. No obstruction. No gross mural thickening. APPENDIX: Unremarkable. Normal appendix. PERITONEUM: Unremarkable. No free fluid. No free air. LYMPH NODES: Unremarkable. No enlarged lymph nodes. BLADDER: Unremarkable. REPRODUCTIVE: IUD is seen in the uterus. The uterus is mildly enlarged. Trace amount of free fluid seen in the pelvis. BONES: No acute fracture. OTHER FINDINGS: None. IMPRESSION: Multiple gallstones without CT evidence of acute cholecystitis. 1.7 centimeter stone seen at the cystic duct or at the mid portion of the common bile duct. [id number] intrahepatic biliary ductal dilatation. Further assessment by MRCP may be obtained if clinically warranted. Otherwise no evidence of acute pathology in the abdomen and pelvis.
[2017-02-01] MEDS: Piperacillin/Tazobact 3.375 GM in Sodium Chloride 100 ML IVPB SCH ×2 (14:49→22:12)
[2017-02-01 16:27] LABS: BILIRUBIN,DIRECT 6.2 mg/dL (0.0-0.4)
[2017-02-02] MEDS: Piperacillin/Tazobact 3.375 GM in Sodium Chloride 100 ML IVPB SCH ×3 (05:41→21:21)
[2017-02-02] MEDS: Potassium Ch 20mEq in D5-1/2NS 1,000 ML IV SCH ×2 (07:30→21:21)
[2017-02-02 08:40] LABS: HEMATOCRIT 35.6 % (34.0-47.0); MEAN CELL VOLUME 86.6 fL (81.0-99.0); MEAN CORPUSCULAR HEMOGLOBIN 28.4 pg (27.0-31.0); MEAN CORPUSCULAR HGB CONC 32.8 g/dL (33.0-37.0); MEAN PLATELET VOLUME 9.1 fL (7.2-11.7); WHITE BLOOD COUNT 4.7 K/uL (4.8-10.8)
[2017-02-02 08:56] LABS: CHLORIDE 101 mmol/L (98-107); SODIUM 135 mmol/L (132-148)
[2017-02-02 08:58] LABS: GFR AFRICAN-AMERICAN > 60
[2017-02-02 08:59] LABS: ALKALINE PHOSPHATASE 834 U/L (38-126); ALT/SGPT 227 U/L (9-52); AST/SGOT 198 U/L (14-36); BILIRUBIN,TOTAL 6.9 mg/dL (0.2-1.3); CARBON DIOXIDE 22 mmol/L (22-30); GLUCOSE,RANDOM 120 mg/dL (65-105); TOTAL PROTEIN 7.2 g/dL (6.3-8.3)
[2017-02-02 09:00] LABS: CALCIUM 8.9 mg/dl (8.6-10.4)
[2017-02-02 09:08] LABS: BLOOD UREA NITROGEN 2 mg/dL (7-17)
[2017-02-02 09:23] LABS: EOS # 0.2 K/uL (0.0-0.7); LYMPH # 1.2 K/uL (1.0-4.3); MONO # 0.4 K/uL (0.0-0.8)
[2017-02-02] MEDS: Saccharomyces Boulardi 250 mg Cap PO SCH ×2 (10:00→21:20)
--- NOTE | 2017-02-02 10:07 | CP.PCM.PN ---
<AriasRio martell Bushra - Last Filed: 02/02/17 10:07> Subjective - Date & Time of Evaluation Date of Evaluation: 02/02/17 Time of Evaluation: 10:07 - Subjective Subjective: Gen Sx: Dr Worthy Pt S&E. Reports improvement of pain but still present. Worsening jaundice. Denies N/V, F/C. Plan for EUS/ERCP at [facility] today. Will follow up upon return Objective - Vital Signs/Intake and Output Vital Signs (last 24 hours): Temp Pulse Resp BP Pulse Ox 97.7 F 61 18 102/67 99 02/02/17 00:00 02/02/17 00:00 02/02/17 00:00 02/02/17 00:00 02/02/17 00:00 Intake and Output: 02/02/17 02/02/17 06:59 18:59 Intake Total 1640 Output Total 2 Balance 1638 - Medications Medications: Current Medications Diphenhydramine HCl (Benadryl) 25 mg IVP Q6 PRN PRN Reason: Itching / Pruritus Potassium Chloride/Dextrose/Sod Cl (Potassium Chl 20 Meq In D5-1/2ns) 1,000 mls @ 100 mls/hr IV .Q10H [facility] Last Admin: 02/01/17 21:10 Dose: 100 mls/hr Piperacillin Sod/Tazobactam (Sod 3.375 gm/ Sodium Chloride) 100 mls @ 200 mls/ hr IVPB Q8H [facility] Last Admin: 02/02/17 05:41 Dose: 200 mls/hr Pantoprazole Sodium (Protonix Inj) 40 mg IVP DAILY [facility] Last Admin: 02/01/17 10:54 Dose: 40 mg Pneumococcal Polyvalent Vaccine (Pneumovax 23 Vaccine) 0.5 ml IM .ONCE ONE Stop: 02/03/17 10:01 Saccharomyces Boulardii (Florastor) 250 mg PO BID [facility] - Labs Labs: 02/02/17 08:20 02/02/17 08:20 PT 11.4 SECONDS (9.7-12.2) 01/31/17 20:12 INR 1.0 01/31/17 20:12 APTT 37 SECONDS (21-34) H 01/31/17 20:12 - Constitutional Appears: Non-toxic - Eye Exam Eye Exam: Scleral icterus - Respiratory Exam Respiratory Exam: absent: Accessory Muscle Use, Respiratory Distress - Cardiovascular Exam Cardiovascular Exam: REGULAR RHYTHM - GI/Abdominal Exam GI & Abdominal Exam: Soft, Tenderness (RUQ). absent: Distended, Firm, Hernia, Mass - Neurological Exam Neurological Exam: Alert, Awake, Oriented x3 - Psychiatric Exam Psychiatric exam: Normal Affect, Normal Mood - Skin Skin Exam: Normal Color, Warm Assessment and Plan - Assessment and Plan (Free Text) Assessment: 36F w/ choledocholithiasis Plan: EUS/ERCP @ [facility] today will follow up with results likely cholecystectomy to follow, possibly next week, will update further following procedure will d/w Dr Zaynab Bianchi, PGY2 <Alberto Worthy B - Last Filed: 02/03/17 14:17> Objective - Vital Signs/Intake and Output Vital Signs (last 24 hours): Temp Pulse Resp BP Pulse Ox 97.9 F 65 19 104/66 98 02/03/17 08:00 02/03/17 08:00 02/03/17 08:00 02/03/17 08:00 02/03/17 08:00 Intake and Output: 02/03/17 02/03/17 06:59 18:59 Intake Total 900 Balance 900 - Medications Medications: Current Medications Diphenhydramine HCl (Benadryl) 25 mg IVP Q6 PRN PRN Reason: Itching / Pruritus Potassium Chloride/Dextrose/Sod Cl (Potassium Chl 20 Meq In D5-1/2ns) 1,000 mls @ 100 mls/hr IV .Q10H [facility] Last Admin: 02/03/17 03:01 Dose: Not Given Piperacillin Sod/Tazobactam (Sod 3.375 gm/ Sodium Chloride) 100 mls @ 200 mls/ hr IVPB Q8H [facility] Last Admin: 02/03/17 05:15 Dose: 200 mls/hr Pantoprazole Sodium (Protonix Inj) 40 mg IVP DAILY [facility] Last Admin: 02/03/17 10:47 Dose: 40 mg Saccharomyces Boulardii (Florastor) 250 mg PO BID [facility] Last Admin: 02/03/17 10:47 Dose: 250 mg - Labs Labs: 02/03/17 08:36 02/03/17 08:36 PT 12.3 SECONDS (9.7-12.2) H 02/03/17 08:36 INR 1.1 02/03/17 08:36 APTT 37 SECONDS (21-34) H 01/31/17 20:12 Attending/Attestation - Attestation I have personally seen and examined this patient.: Yes I have fully participated in the care of the patient.: Yes I have reviewed all pertinent clinical information, including history, physical exam and plan: Yes Notes (Text): 02/03/17 14:16 Pt was seen and examined at bedside on 02/02/17 Agree with above note and assessment Pt with cholelithiasis and CBD Stone ERCP today Possible Lap cholecystectomy tomorrow after ERCP C/w current mx Plan d.w pt in detail Risk and benefit explained in detail
--- NOTE | 2017-02-02 10:48 | CP.PCM.PN ---
<Lizzeth Quinonez DO - Last Filed: 02/02/17 10:46> Subjective - Date & Time of Evaluation Date of Evaluation: 02/02/17 Time of Evaluation: 07:40 - Subjective Subjective: PGY1 progress note for Dr. Kidd Patient seen and examined. Patient complains of pruritis. Patient to go to [facility] today for EUS/ ERCP with Dr. Gordon. Objective - Vital Signs/Intake and Output Vital Signs (last 24 hours): Temp Pulse Resp BP Pulse Ox 97.7 F 61 18 102/67 99 02/02/17 00:00 02/02/17 00:00 02/02/17 00:00 02/02/17 00:00 02/02/17 00:00 Intake and Output: 02/02/17 02/02/17 06:59 18:59 Intake Total 1640 Output Total 2 Balance 1638 - Medications Medications: Current Medications Diphenhydramine HCl (Benadryl) 25 mg IVP Q6 PRN PRN Reason: Itching / Pruritus Potassium Chloride/Dextrose/Sod Cl (Potassium Chl 20 Meq In D5-1/2ns) 1,000 mls @ 100 mls/hr IV .Q10H [facility] Last Admin: 02/01/17 21:10 Dose: 100 mls/hr Piperacillin Sod/Tazobactam (Sod 3.375 gm/ Sodium Chloride) 100 mls @ 200 mls/ hr IVPB Q8H [facility] Last Admin: 02/02/17 05:41 Dose: 200 mls/hr Pantoprazole Sodium (Protonix Inj) 40 mg IVP DAILY [facility] Last Admin: 02/01/17 10:54 Dose: 40 mg Pneumococcal Polyvalent Vaccine (Pneumovax 23 Vaccine) 0.5 ml IM .ONCE ONE Stop: 02/03/17 10:01 Saccharomyces Boulardii (Florastor) 250 mg PO BID [facility] - Labs Labs: 02/02/17 08:20 02/02/17 08:20 PT 11.4 SECONDS (9.7-12.2) 01/31/17 20:12 INR 1.0 01/31/17 20:12 APTT 37 SECONDS (21-34) H 01/31/17 20:12 - Constitutional Appears: No Acute Distress - Head Exam Head Exam: ATRAUMATIC, NORMOCEPHALIC - Eye Exam Eye Exam: EOMI, Scleral icterus - ENT Exam ENT Exam: Mucous Membranes Moist - Respiratory Exam Respiratory Exam: Clear to Ausculation Bilateral, NORMAL BREATHING PATTERN - Cardiovascular Exam Cardiovascular Exam: +S1, +S2 - GI/Abdominal Exam GI & Abdominal Exam: Soft, Normal Bowel Sounds. absent: Tenderness - Extremities Exam Extremities Exam: absent: Pedal Edema - Neurological Exam Neurological Exam: Alert, Awake - Psychiatric Exam Psychiatric exam: Normal Affect - Skin Skin Exam: Warm Additional comments: jaundice Assessment and Plan - Assessment and Plan (Free Text) Assessment: Obstructive jaundice -U/S abdomen: cholelithiasis with intrahepatic and extrahepatic bile duct dilatation. Cannot exclude distal common duct stones. CBD 9.6mm. Consider MRCP for further eval. -TBili 8.2 --> 7.6 -->6.9 -AST 292 --> 244 --> 198 -ALT 307 --> 261 --> 227 -Alk Phosphatase 969 -->870 --> 834 -Abx changed to zosyn as per GI -Benadryl 25mg ivp q6 prn pruritus -Protonix 40mg ivp daily -D51/2NS with 20KCl @ 100cc/hr -CT Abdomen/pelvis: multiple gallstones without CT evidence of acute cholecystitits. 1.7 cm stone seen at the cystic duct or at the mid portion of the common bile duct, mild to moderate intrahepatic biliary ductal dilatation. Otherwise no evidence of acute pathology in the abdomen/pelvis -General surgery consult: Dr. Worthy, help appreciated -GI consult: Dr. Mann- agree with MRCP, recommend consult for Dr. Gordon- plan for EUS/ ERCP today at [facility] -hepatitis panel negative - ELROY, AMA, SMA, LKM-Ab - IgG 1023.7 UTI -UA +leuk esterase and +bacteria -f/u urine culture -blood culture no growth 24h PPX -NPO after MN for ERCP -D51/2NS with 20KCl @ 100cc/hr -Protonix 40mg ivp daily -SCDs <Ines Kidd V - Last Filed: 02/02/17 23:47> Objective - Vital Signs/Intake and Output Vital Signs (last 24 hours): Temp Pulse Resp BP Pulse Ox 98.1 F 64 20 103/66 99 02/02/17 20:45 02/02/17 20:45 02/02/17 20:45 02/02/17 20:45 02/02/17 20:45 - Medications Medications: Current Medications Diphenhydramine HCl (Benadryl) 25 mg IVP Q6 PRN PRN Reason: Itching / Pruritus Potassium Chloride/Dextrose/Sod Cl (Potassium Chl 20 Meq In D5-1/2ns) 1,000 mls @ 100 mls/hr IV .Q10H [facility] Last Admin: 02/02/17 21:21 Dose: 100 mls/hr Piperacillin Sod/Tazobactam (Sod 3.375 gm/ Sodium Chloride) 100 mls @ 200 mls/ hr IVPB Q8H [facility] Last Admin: 02/02/17 21:21 Dose: 200 mls/hr Pantoprazole Sodium (Protonix Inj) 40 mg IVP DAILY [facility] Last Admin: 02/02/17 11:00 Dose: Not Given Pneumococcal Polyvalent Vaccine (Pneumovax 23 Vaccine) 0.5 ml IM .ONCE ONE Stop: 02/03/17 10:01 Saccharomyces Boulardii (Florastor) 250 mg PO BID [facility] Last Admin: 02/02/17 21:20 Dose: Not Given - Labs Labs: 02/02/17 08:20 02/02/17 08:20 PT 11.4 SECONDS (9.7-12.2) 01/31/17 20:12 INR 1.0 01/31/17 20:12 APTT 37 SECONDS (21-34) H 01/31/17 20:12 Attending/Attestation - Attestation I have personally seen and examined this patient.: Yes I have fully participated in the care of the patient.: Yes I have reviewed all pertinent clinical information, including history, physical exam and plan: Yes Notes (Text): Patient seen, examined and case discussed with day-time resident. Patient reporting itchiness and reports she would like to drink some water but understands she can't. Patient going to [facility] at 11AM today for EUS/ERCP with Dr. Lee; will follow-up when patient returns. Per surgery note, recommending possible lap leyda pending results of ERCP/EUS; will follow-up ERCP/EUS report when available. Assessment/Plan 1) Obstructive jaundice; Hyperbilirubinemia; Choledocholithasis * General surgery (Dr. Worthy) on help appreciated * GI (Dr. Mann) on consult-->help appreciated * GI (Dr. Gordon) on consult-->help appreciated * U/S abdomen (01/31/17): cholelithiasis with intrahepatic and extrahepatic bile duct dilatation. Cannot exclude distal common duct stones. CBD 9.6mm. Consider MRCP for further eval. Hepatic steatosis. Patient portal vein * CT Abdomen/Pelvis (02/01/17): multiple gallstones without CT evidence of acute cholecystitits. 1.7 cm stone seen at the cystic duct or at the mid portion of the common bile duct, mild to moderate intrahepatic biliary ductal dilatation. Otherwise no evidence of acute pathology in the abdomen/pelvis * Serologies: hepatitis panel: negative, ELROY, AMA: negative, SMA: 1:20 positive , LKM-Ab: pending, Ig.7 * Benadryl 25mg ivp q6 prn pruritus * Protonix 40mg ivp daily * D51/2NS with 20KCl @ 100cc/hr 2) Frequency * UA +leuk esterase and +bacteria * f/u urine culture-->pending * blood culture (02/01/17): no growth after 24 hours X2 * Zosyn 3.375 IV Q 8 hours (active since 02/01/17) * Florastor 250mg PO bid 3) Transaminitis * Went to [facility] today for EUS/ERCP with Dr. Lee * U/S abdomen (01/31/17): cholelithiasis with intrahepatic and extrahepatic bile duct dilatation. Cannot exclude distal common duct stones. CBD 9.6mm. Consider MRCP for further eval. Hepatic steatosis. Patient portal vein * CT Abdomen/Pelvis (02/01/17): multiple gallstones without CT evidence of acute cholecystitits. 1.7 cm stone seen at the cystic duct or at the mid portion of the common bile duct, mild to moderate intrahepatic biliary ductal dilatation. Otherwise no evidence of acute pathology in the abdomen/pelvis * Serologies: hepatitis panel: negative, ELROY, AMA: negative, SMA: 1:20 positive , LKM-Ab: pending, Ig.7 * Benadryl 25mg ivp q6 prn pruritus * Downtrending 4) Dyslipidemia * Will need diet and exercise modifications and re-evaluate lipid panel in 3-4 months 5) PPX * NPO * D51/2NS with 20KCl @ 100cc/hr * Protonix 40mg ivp daily * SCDs
--- NOTE | 2017-02-02 10:50 | CP.PCM.PN ---
Subjective - Date & Time of Evaluation Date of Evaluation: 02/02/17 Time of Evaluation: 10:48 - Subjective Subjective: No new c/o Interventional GI consultation appreciated Scheduled for ERCP today at [facility] LFTs slightly improved. Objective - Vital Signs/Intake and Output Vital Signs (last 24 hours): Temp Pulse Resp BP Pulse Ox 97.7 F 61 18 102/67 99 02/02/17 00:00 02/02/17 00:00 02/02/17 00:00 02/02/17 00:00 02/02/17 00:00 Intake and Output: 02/02/17 02/02/17 06:59 18:59 Intake Total 1640 Output Total 2 Balance 1638 - Medications Medications: Current Medications Diphenhydramine HCl (Benadryl) 25 mg IVP Q6 PRN PRN Reason: Itching / Pruritus Potassium Chloride/Dextrose/Sod Cl (Potassium Chl 20 Meq In D5-1/2ns) 1,000 mls @ 100 mls/hr IV .Q10H [facility] Last Admin: 02/01/17 21:10 Dose: 100 mls/hr Piperacillin Sod/Tazobactam (Sod 3.375 gm/ Sodium Chloride) 100 mls @ 200 mls/ hr IVPB Q8H [facility] Last Admin: 02/02/17 05:41 Dose: 200 mls/hr Pantoprazole Sodium (Protonix Inj) 40 mg IVP DAILY [facility] Last Admin: 02/01/17 10:54 Dose: 40 mg Pneumococcal Polyvalent Vaccine (Pneumovax 23 Vaccine) 0.5 ml IM .ONCE ONE Stop: 02/03/17 10:01 Saccharomyces Boulardii (Florastor) 250 mg PO BID [facility] - Labs Labs: 02/02/17 08:20 02/02/17 08:20 PT 11.4 SECONDS (9.7-12.2) 01/31/17 20:12 INR 1.0 01/31/17 20:12 APTT 37 SECONDS (21-34) H 01/31/17 20:12 - Constitutional Appears: No Acute Distress - Head Exam Head Exam: ATRAUMATIC, NORMOCEPHALIC - Eye Exam Eye Exam: EOMI, PERRL, Scleral icterus - Respiratory Exam Respiratory Exam: NORMAL BREATHING PATTERN - Cardiovascular Exam Cardiovascular Exam: REGULAR RHYTHM - GI/Abdominal Exam GI & Abdominal Exam: Soft, Tenderness, Normal Bowel Sounds. absent: Guarding, Rigid, Rebound - Extremities Exam Extremities Exam: Normal Inspection Assessment and Plan (1) Abnormal transaminases Assessment & Plan: LIkely due to CBD stone. R/o other underlying Chronic liver disease. (viral, autoimmune markers) Follow LFT's post ERCP. Status: Acute (2) RUQ pain Status: Acute (3) Cholelithiasis Assessment & Plan: Findings and review of CT Scan c/w Choledocholithiasis. PAtient for ERCP today. Lap Cholecystectomy advised to follow stone removal\ Continue antibiotics Further management per Dr Gordon and his team. Status: Acute
[2017-02-02 15:15] LABS: SMOOTH MUSCLE AB TITER 1:20 Titer (< 1:20)
--- NOTE | 2017-02-02 18:52 | CP.PCM.PCO ---
Physician Communication Note - Physician Communication Note Physician Communication Note: Will plan for OR 02/03 in afternoon for lissette crabtree
[2017-02-03] MEDS: Potassium Ch 20mEq in D5-1/2NS 1,000 ML IV SCH ×2 (03:01→21:34)
[2017-02-03] MEDS: Piperacillin/Tazobact 3.375 GM in Sodium Chloride 100 ML IVPB SCH ×3 (05:15→21:46)
--- NOTE | 2017-02-03 07:18 | CP.PCM.PN ---
<Rio Bianchi - Last Filed: 02/03/17 07:15> Subjective - Date & Time of Evaluation Date of Evaluation: 02/03/17 Time of Evaluation: 07:15 - Subjective Subjective: Gen Sx: Dr Worthy Pt S&E. Had ERCP yesterday, removed several stone fragments but some remain. Stent placed. Will need repeat ERCP before lap leyda. Denies pain, n/v, f/c, Pt states she is hungry Objective - Vital Signs/Intake and Output Vital Signs (last 24 hours): Temp Pulse Resp BP Pulse Ox 97.3 F L 69 18 100/59 L 97 02/03/17 00:00 02/03/17 00:00 02/03/17 00:00 02/03/17 00:00 02/03/17 00:00 Intake and Output: 02/03/17 02/03/17 06:59 18:59 Intake Total 900 Balance 900 - Medications Medications: Current Medications Diphenhydramine HCl (Benadryl) 25 mg IVP Q6 PRN PRN Reason: Itching / Pruritus Potassium Chloride/Dextrose/Sod Cl (Potassium Chl 20 Meq In D5-1/2ns) 1,000 mls @ 100 mls/hr IV .Q10H [facility] Last Admin: 02/03/17 03:01 Dose: Not Given Piperacillin Sod/Tazobactam (Sod 3.375 gm/ Sodium Chloride) 100 mls @ 200 mls/ hr IVPB Q8H [facility] Last Admin: 02/03/17 05:15 Dose: 200 mls/hr Pantoprazole Sodium (Protonix Inj) 40 mg IVP DAILY [facility] Last Admin: 02/02/17 11:00 Dose: Not Given Pneumococcal Polyvalent Vaccine (Pneumovax 23 Vaccine) 0.5 ml IM .ONCE ONE Stop: 02/03/17 10:01 Saccharomyces Boulardii (Florastor) 250 mg PO BID [facility] Last Admin: 02/02/17 21:20 Dose: Not Given - Labs Labs: 02/02/17 08:20 02/02/17 08:20 PT 11.4 SECONDS (9.7-12.2) 01/31/17 20:12 INR 1.0 01/31/17 20:12 APTT 37 SECONDS (21-34) H 01/31/17 20:12 - Constitutional Appears: Non-toxic, No Acute Distress - ENT Exam ENT Exam: Mucous Membranes Moist - Respiratory Exam Respiratory Exam: absent: Accessory Muscle Use, Respiratory Distress - Cardiovascular Exam Cardiovascular Exam: REGULAR RHYTHM - GI/Abdominal Exam GI & Abdominal Exam: Soft. absent: Distended, Firm, Rigid, Tenderness - Neurological Exam Neurological Exam: Alert, Awake, Oriented x3 - Psychiatric Exam Psychiatric exam: Normal Affect, Normal Mood - Skin Skin Exam: Warm. absent: Normal Color (jaundice improved ) Assessment and Plan - Assessment and Plan (Free Text) Assessment: 36F with choledocholithiasis, s/p ERCP w/ partial retained stone fragments Plan: will defer lap leyda until repeat ERCP in case pt needs CBD exploration will cont to follow along with GI diet advancement per GI d/w Dr Zaynab Bianchi, PGY2 <Alberto Worthy - Last Filed: 02/03/17 14:28> Objective - Vital Signs/Intake and Output Vital Signs (last 24 hours): Temp Pulse Resp BP Pulse Ox 97.9 F 65 19 104/66 98 02/03/17 08:00 02/03/17 08:00 02/03/17 08:00 02/03/17 08:00 02/03/17 08:00 Intake and Output: 02/03/17 02/03/17 06:59 18:59 Intake Total 900 Balance 900 - Medications Medications: Current Medications Diphenhydramine HCl (Benadryl) 25 mg IVP Q6 PRN PRN Reason: Itching / Pruritus Potassium Chloride/Dextrose/Sod Cl (Potassium Chl 20 Meq In D5-1/2ns) 1,000 mls @ 100 mls/hr IV .Q10H [facility] Last Admin: 02/03/17 03:01 Dose: Not Given Piperacillin Sod/Tazobactam (Sod 3.375 gm/ Sodium Chloride) 100 mls @ 200 mls/ hr IVPB Q8H [facility] Last Admin: 02/03/17 05:15 Dose: 200 mls/hr Pantoprazole Sodium (Protonix Inj) 40 mg IVP DAILY [facility] Last Admin: 02/03/17 10:47 Dose: 40 mg Saccharomyces Boulardii (Florastor) 250 mg PO BID [facility] Last Admin: 02/03/17 10:47 Dose: 250 mg - Labs Labs: 02/03/17 08:36 02/03/17 08:36 PT 12.3 SECONDS (9.7-12.2) H 02/03/17 08:36 INR 1.1 02/03/17 08:36 APTT 37 SECONDS (21-34) H 01/31/17 20:12 Attending/Attestation - Attestation I have personally seen and examined this patient.: Yes I have fully participated in the care of the patient.: Yes I have reviewed all pertinent clinical information, including history, physical exam and plan: Yes Notes (Text): 02/03/17 14:27 Pt was seen and examined at bedside on 02/03/17 Agree with above note and assessment Pt with cholelithiasis and CBD stone S/P ERCP with partial removal of Stone Repeat ERCP next week C.w current mx Plan d.w pt in detail Risk and benefit explained in detail
[2017-02-03 08:52] LABS: BASO % 0.2 % (0.0-2.0); HEMATOCRIT 31.6 % (34.0-47.0); INR 1.1; LYMPH # 0.7 K/uL (1.0-4.3); LYMPH % 9.8 % (20.0-40.0); MEAN CELL VOLUME 86.9 fL (81.0-99.0); MEAN CORPUSCULAR HEMOGLOBIN 29.3 pg (27.0-31.0); MEAN CORPUSCULAR HGB CONC 33.7 g/dL (33.0-37.0); MEAN PLATELET VOLUME 9.5 fL (7.2-11.7); MONO # 0.3 K/uL (0.0-0.8); MONO % 3.6 % (0.0-10.0); NRBC % 0.1 % (0.0-2.0); PLATELET COUNT 352 K/uL (130-400); RED CELL DISTRIBUTION WIDTH 17.8 % (11.5-14.5)
[2017-02-03 08:58] LABS: WHITE BLOOD COUNT 7.6 K/uL (4.8-10.8)
--- NOTE | 2017-02-03 09:39 | RAD ---
HISTORY: baseline COMPARISON: No prior. FINDINGS: LUNGS: No active pulmonary disease. PLEURA: No significant pleural effusion identified, no pneumothorax apparent. CARDIOVASCULAR: Normal. OSSEOUS STRUCTURES: No significant abnormalities. VISUALIZED UPPER ABDOMEN: Apparent in situ common bile duct stent or stents. . Clinical correlation history recommended. . OTHER FINDINGS: None. IMPRESSION: No acute cardiopulmonary disease. Apparent in situ common bile duct stent or stents. Clinical correlation with history recommended
[2017-02-03 09:54] LABS: CHLORIDE 101 mmol/L (98-107); SODIUM 136 mmol/L (132-148)
[2017-02-03 09:56] LABS: AST/SGOT 128 U/L (14-36); BILIRUBIN,TOTAL 4.3 mg/dL (0.2-1.3); CARBON DIOXIDE 23 mmol/L (22-30); GFR AFRICAN-AMERICAN > 60
[2017-02-03 09:57] LABS: ALKALINE PHOSPHATASE 701 U/L (38-126); ALT/SGPT 177 U/L (9-52); BLOOD UREA NITROGEN 12 mg/dL (7-17); CALCIUM 8.7 mg/dl (8.6-10.4); GLUCOSE,RANDOM 134 mg/dL (65-105); PHOSPHOROUS 2.9 mg/dL (2.5-4.5)
[2017-02-03 09:58] LABS: MAGNESIUM 1.8 mg/dL (1.6-2.3)
[2017-02-03] MEDS ORDERED: Pneumococcal 23-Valent Vaccine IM ONE (10:00)
[2017-02-03] MEDS: Saccharomyces Boulardi 250 mg Cap PO SCH ×2 (10:47→21:47)
--- NOTE | 2017-02-03 11:11 | CP.PCM.PN ---
Subjective - Date & Time of Evaluation Date of Evaluation: 02/03/17 Time of Evaluation: 07:30 - Subjective Subjective: PGY1 progress note for Dr. Kidd Patient seen and examined. Patient s/p ERCP yesterday with partial removal of stone. Patient states she has no abdominal pain and states pruritis has resolved. Objective - Vital Signs/Intake and Output Vital Signs (last 24 hours): Temp Pulse Resp BP Pulse Ox 97.9 F 65 19 104/66 98 02/03/17 08:00 02/03/17 08:00 02/03/17 08:00 02/03/17 08:00 02/03/17 08:00 Intake and Output: 02/03/17 02/03/17 06:59 18:59 Intake Total 900 Balance 900 - Medications Medications: Current Medications Diphenhydramine HCl (Benadryl) 25 mg IVP Q6 PRN PRN Reason: Itching / Pruritus Potassium Chloride/Dextrose/Sod Cl (Potassium Chl 20 Meq In D5-1/2ns) 1,000 mls @ 100 mls/hr IV .Q10H [facility] Last Admin: 02/03/17 03:01 Dose: Not Given Piperacillin Sod/Tazobactam (Sod 3.375 gm/ Sodium Chloride) 100 mls @ 200 mls/ hr IVPB Q8H [facility] Last Admin: 02/03/17 05:15 Dose: 200 mls/hr Pantoprazole Sodium (Protonix Inj) 40 mg IVP DAILY [facility] Last Admin: 02/03/17 10:47 Dose: 40 mg Saccharomyces Boulardii (Florastor) 250 mg PO BID [facility] Last Admin: 02/03/17 10:47 Dose: 250 mg - Labs Labs: 02/03/17 08:36 02/03/17 08:36 PT 12.3 SECONDS (9.7-12.2) H 02/03/17 08:36 INR 1.1 02/03/17 08:36 APTT 37 SECONDS (21-34) H 01/31/17 20:12 - Constitutional Appears: No Acute Distress - Head Exam Head Exam: ATRAUMATIC, NORMOCEPHALIC - Eye Exam Eye Exam: EOMI, Scleral icterus - ENT Exam ENT Exam: Mucous Membranes Moist - Respiratory Exam Respiratory Exam: Clear to Ausculation Bilateral, NORMAL BREATHING PATTERN - Cardiovascular Exam Cardiovascular Exam: +S1, +S2 - GI/Abdominal Exam GI & Abdominal Exam: Soft, Normal Bowel Sounds. absent: Tenderness - Extremities Exam Extremities Exam: absent: Pedal Edema - Neurological Exam Neurological Exam: Alert, Awake - Psychiatric Exam Psychiatric exam: Normal Affect - Skin Skin Exam: Warm Additional comments: jaundice with some improvement noticed on face and mucus membranes Assessment and Plan - Assessment and Plan (Free Text) Assessment: Obstructive jaundice -U/S abdomen: cholelithiasis with intrahepatic and extrahepatic bile duct dilatation. Cannot exclude distal common duct stones. CBD 9.6mm. Consider MRCP for further eval. -TBili 8.2 --> 7.6 -->6.9-->4.3 -AST 292 --> 244 --> 198-->128 -ALT 307 --> 261 --> 227-->177 -Alk Phosphatase 969 -->870 --> 834-->701 -continue zosyn as per GI -Benadryl 25mg ivp q6 prn pruritus -Protonix 40mg ivp daily -D51/2NS with 20KCl @ 100cc/hr -Start CLD -CT Abdomen/pelvis: multiple gallstones without CT evidence of acute cholecystitits. 1.7 cm stone seen at the cystic duct or at the mid portion of the common bile duct, mild to moderate intrahepatic biliary ductal dilatation. Otherwise no evidence of acute pathology in the abdomen/pelvis -General surgery consult: Dr. Worthy, help appreciated lap leyda to be deferred until patient has repeat ERCP -GI consult: Dr. Mann- agree with MRCP, recommend consult for Dr. Gordon Pt s/p EUS/ ERCP with partial stone removal, biliary stent, pancreatic duct stent. pt will need repeat ERCP. -hepatitis panel negative - ELROY, AMA, SMA, LKM-Ab - IgG 1023.7 UTI -UA +leuk esterase and +bacteria -blood culture no growth 24h PPX -CLD, advance as tolerated -D51/2NS with 20KCl @ 100cc/hr -Protonix 40mg ivp daily -SCDs
[2017-02-03 11:31] LABS: NEUTROPHIL 86 % (50-75); TOTAL CELLS COUNTED 100
--- NOTE | 2017-02-03 13:24 | CP.PCM.PN ---
<Arcadio Mcghee - Last Filed: 02/03/17 13:28> Subjective - Date & Time of Evaluation Date of Evaluation: 02/03/17 Time of Evaluation: 07:40 - Subjective Subjective: PGY4 GI Fellow Progress Note Patient seen and examined bedside this morning. The patient states she is feeling much better today with less abdominal pain. Denies pruritus. Feels her skin colon is improved. Hungry and eager to eat. 12 system ROS performed and negative except where stated. Objective - Vital Signs/Intake and Output Vital Signs (last 24 hours): Temp Pulse Resp BP Pulse Ox 97.9 F 65 19 104/66 98 02/03/17 08:00 02/03/17 08:00 02/03/17 08:00 02/03/17 08:00 02/03/17 08:00 Intake and Output: 02/03/17 02/03/17 06:59 18:59 Intake Total 900 Balance 900 - Medications Medications: Current Medications Diphenhydramine HCl (Benadryl) 25 mg IVP Q6 PRN PRN Reason: Itching / Pruritus Potassium Chloride/Dextrose/Sod Cl (Potassium Chl 20 Meq In D5-1/2ns) 1,000 mls @ 100 mls/hr IV .Q10H [facility] Last Admin: 02/03/17 03:01 Dose: Not Given Piperacillin Sod/Tazobactam (Sod 3.375 gm/ Sodium Chloride) 100 mls @ 200 mls/ hr IVPB Q8H [facility] Last Admin: 02/03/17 05:15 Dose: 200 mls/hr Pantoprazole Sodium (Protonix Inj) 40 mg IVP DAILY [facility] Last Admin: 02/03/17 10:47 Dose: 40 mg Saccharomyces Boulardii (Florastor) 250 mg PO BID [facility] Last Admin: 02/03/17 10:47 Dose: 250 mg - Labs Labs: 02/03/17 08:36 02/03/17 08:36 PT 12.3 SECONDS (9.7-12.2) H 02/03/17 08:36 INR 1.1 02/03/17 08:36 APTT 37 SECONDS (21-34) H 01/31/17 20:12 - Constitutional Appears: No Acute Distress - Eye Exam Eye Exam: EOMI, PERRL, Scleral icterus - ENT Exam ENT Exam: Mucous Membranes Dry - Respiratory Exam Respiratory Exam: Clear to Ausculation Bilateral. absent: Rales, Rhonchi, Wheezes - Cardiovascular Exam Cardiovascular Exam: RRR, +S1, +S2 - GI/Abdominal Exam GI & Abdominal Exam: Soft, Normal Bowel Sounds. absent: Distended, Firm, Guarding, Rigid, Tenderness, Organomegaly - Extremities Exam Extremities Exam: Normal Inspection. absent: Pedal Edema - Neurological Exam Neurological Exam: Alert, Awake, Oriented x3 - Psychiatric Exam Psychiatric exam: Normal Affect, Normal Mood - Skin Skin Exam: Dry, Warm Additional comments: jaundice, though improved Assessment and Plan - Assessment and Plan (Free Text) Assessment: Patient is a 36yo female with PMHx significant for anxiety/depression and gallstones who presented to the hospital with diffuse itching and abdominal pain. -Elevated LFTs and abdominal pain 2/2 obstructive jaundice 2/2 choledocolithiasis -Cholelithiasis -Pruritus 2/2 above, resolved Plan: -S/P ERCP with SpyGlass lithotripsy to removed large choledocolith; removed partially, some stone impacted in duct; stent placed -LFTs downtrending -Continue to follow CMP daily and monitor clinically -Advance diet as tolerated today -Discussed with surgical service; they will defer surgery until repeat ERCP performed -Continue antibiotic coverage to Zosyn -Autoimmune labs pending: ELROY, LKM-Ab pending -SMA noted to be weakly positive at 1:20; will need monitoring of LFTs as outpatient -Analgesia/antiemetics PRN per primary service <Koffi Gordon - Last Filed: 02/03/17 14:38> Objective - Vital Signs/Intake and Output Vital Signs (last 24 hours): Temp Pulse Resp BP Pulse Ox 97.9 F 65 19 104/66 98 02/03/17 08:00 02/03/17 08:00 02/03/17 08:00 02/03/17 08:00 02/03/17 08:00 Intake and Output: 02/03/17 02/03/17 06:59 18:59 Intake Total 900 Balance 900 - Medications Medications: Current Medications Diphenhydramine HCl (Benadryl) 25 mg IVP Q6 PRN PRN Reason: Itching / Pruritus Potassium Chloride/Dextrose/Sod Cl (Potassium Chl 20 Meq In D5-1/2ns) 1,000 mls @ 100 mls/hr IV .Q10H [facility] Last Admin: 02/03/17 03:01 Dose: Not Given Piperacillin Sod/Tazobactam (Sod 3.375 gm/ Sodium Chloride) 100 mls @ 200 mls/ hr IVPB Q8H [facility] Last Admin: 02/03/17 05:15 Dose: 200 mls/hr Pantoprazole Sodium (Protonix Inj) 40 mg IVP DAILY [facility] Last Admin: 02/03/17 10:47 Dose: 40 mg Saccharomyces Boulardii (Florastor) 250 mg PO BID [facility] Last Admin: 02/03/17 10:47 Dose: 250 mg - Labs Labs: 02/03/17 08:36 02/03/17 08:36 PT 12.3 SECONDS (9.7-12.2) H 02/03/17 08:36 INR 1.1 02/03/17 08:36 APTT 37 SECONDS (21-34) H 01/31/17 20:12 Attending/Attestation - Attestation I have personally seen and examined this patient.: Yes I have fully participated in the care of the patient.: Yes I have reviewed all pertinent clinical information, including history, physical exam and plan: Yes Notes (Text): 02/03/17 14:35 36 year old female with h/o cholelithiasis admitted with abdominal pain and jaundice, found to have large impacted CBD stone s/p ERCP with sphincterotomy, spyglass with EHL, and stent placement. 1. Choledocholithiasis 2. Abdominal pain 3. Cholangitis Plan: -LFTs downtrending -jaundice improved -abdominal pain improving -tolerating liquid diet -advance diet to low fat -continue antibiotics -large calcified CBD stone, lithotripsy performed, but extraction incomplete, will need repeat ERCP to complete duct clearance -if stable tomorrow, may be able to be discharged with outpatient follow up
--- NOTE | 2017-02-03 13:35 | CP.PCM.PN ---
Subjective - Date & Time of Evaluation Date of Evaluation: 02/03/17 Time of Evaluation: 13:32 - Subjective Subjective: OR cancelled for today EVents of ERCP noted and discussed with Dr Gordon LFT's somewhat improved after stent Pain is mild Objective - Vital Signs/Intake and Output Vital Signs (last 24 hours): Temp Pulse Resp BP Pulse Ox 97.9 F 65 19 104/66 98 02/03/17 08:00 02/03/17 08:00 02/03/17 08:00 02/03/17 08:00 02/03/17 08:00 Intake and Output: 02/03/17 02/03/17 06:59 18:59 Intake Total 900 Balance 900 - Medications Medications: Current Medications Diphenhydramine HCl (Benadryl) 25 mg IVP Q6 PRN PRN Reason: Itching / Pruritus Potassium Chloride/Dextrose/Sod Cl (Potassium Chl 20 Meq In D5-1/2ns) 1,000 mls @ 100 mls/hr IV .Q10H [facility] Last Admin: 02/03/17 03:01 Dose: Not Given Piperacillin Sod/Tazobactam (Sod 3.375 gm/ Sodium Chloride) 100 mls @ 200 mls/ hr IVPB Q8H [facility] Last Admin: 02/03/17 05:15 Dose: 200 mls/hr Pantoprazole Sodium (Protonix Inj) 40 mg IVP DAILY [facility] Last Admin: 02/03/17 10:47 Dose: 40 mg Saccharomyces Boulardii (Florastor) 250 mg PO BID [facility] Last Admin: 02/03/17 10:47 Dose: 250 mg - Labs Labs: 02/03/17 08:36 02/03/17 08:36 PT 12.3 SECONDS (9.7-12.2) H 02/03/17 08:36 INR 1.1 02/03/17 08:36 APTT 37 SECONDS (21-34) H 01/31/17 20:12 - Head Exam Head Exam: NORMAL INSPECTION - Eye Exam Eye Exam: Scleral icterus - Respiratory Exam Respiratory Exam: NORMAL BREATHING PATTERN - Cardiovascular Exam Cardiovascular Exam: REGULAR RHYTHM - GI/Abdominal Exam GI & Abdominal Exam: Soft, Normal Bowel Sounds. absent: Tenderness Assessment and Plan (1) Abnormal transaminases Assessment & Plan: improving after stent viral hepatitis markers were negative Status: Acute (2) RUQ pain Status: Acute (3) Cholelithiasis Assessment & Plan: Awaiting Lap Cholecytectomy once CBD stone management plan is in place Status: Acute (4) Choledocholithiasis with obstruction Assessment & Plan: S/P ERCP, partial stone extraction and placement of stent. Improvement in obstruction noted though further management of impacted stone is needed from Dr Gordon and his team. Family advised to discuss with them. Status: Acute
[2017-02-03 22:08] LABS: LKM-1 Ab (IgG) <=20.0 U (<=20.0)
[2017-02-03] MEDS: DiphenhydrAMINE 50 mg/ml Inj IVP PRN (22:18)
[2017-02-04] MEDS: Potassium Ch 20mEq in D5-1/2NS 1,000 ML IV SCH ×3 (01:06→09:34)
[2017-02-04] MEDS: Piperacillin/Tazobact 3.375 GM in Sodium Chloride 100 ML IVPB SCH ×3 (05:19→22:02)
[2017-02-04 08:44] LABS: BASO % 0.4 % (0.0-2.0); EOS # 0.1 K/uL (0.0-0.7); EOS % 1.4 % (0.0-4.0); HEMATOCRIT 29.7 % (34.0-47.0); LYMPH # 1.6 K/uL (1.0-4.3); LYMPH % 22.5 % (20.0-40.0); MEAN CELL VOLUME 87.3 fL (81.0-99.0); MEAN CORPUSCULAR HEMOGLOBIN 29.2 pg (27.0-31.0); MEAN CORPUSCULAR HGB CONC 33.5 g/dL (33.0-37.0); MEAN PLATELET VOLUME 9.6 fL (7.2-11.7); MONO # 0.6 K/uL (0.0-0.8); MONO % 7.7 % (0.0-10.0); NRBC % 0.1 % (0.0-2.0); RED CELL DISTRIBUTION WIDTH 17.4 % (11.5-14.5); WHITE BLOOD COUNT 7.2 K/uL (4.8-10.8)
[2017-02-04 08:54] LABS: CHLORIDE 102 mmol/L (98-107)
[2017-02-04 08:55] LABS: POTASSIUM 3.8 mmol/L (3.6-5.2); SODIUM 136 mmol/L (132-148)
[2017-02-04 08:57] LABS: ALKALINE PHOSPHATASE 493 U/L (38-126); AST/SGOT 70 U/L (14-36); BILIRUBIN,TOTAL 2.7 mg/dL (0.2-1.3); CARBON DIOXIDE 24 mmol/L (22-30); GFR AFRICAN-AMERICAN > 60
[2017-02-04 08:58] LABS: ALT/SGPT 125 U/L (9-52); BLOOD UREA NITROGEN 10 mg/dL (7-17); CALCIUM 7.8 mg/dl (8.6-10.4); GLUCOSE,RANDOM 99 mg/dL (65-105); TOTAL PROTEIN 5.9 g/dL (6.3-8.3)
--- NOTE | 2017-02-04 09:16 | CP.PCM.PN ---
<Arcadio Mcghee - Last Filed: 02/04/17 09:12> Subjective - Date & Time of Evaluation Date of Evaluation: 02/04/17 Time of Evaluation: 07:40 - Subjective Subjective: PGY4 GI Fellow Progress Note Patient seen and examined bedside this morning. The patient states she is having 7/10 RUQ pain today, worse 2 hours after meals. Admits to continued pruritus today. No events overnight. 12 system ROS performed and negative except where stated. Objective - Vital Signs/Intake and Output Vital Signs (last 24 hours): Temp Pulse Resp BP Pulse Ox 98.3 F 72 18 95/53 L 100 02/04/17 00:00 02/04/17 00:00 02/04/17 00:00 02/04/17 00:00 02/04/17 00:00 Intake and Output: 02/04/17 02/04/17 06:59 18:59 Intake Total 1140 Balance 1140 - Medications Medications: Current Medications Diphenhydramine HCl (Benadryl) 25 mg IVP Q6 PRN PRN Reason: Itching / Pruritus Last Admin: 02/03/17 22:18 Dose: 25 mg Potassium Chloride/Dextrose/Sod Cl (Potassium Chl 20 Meq In D5-1/2ns) 1,000 mls @ 100 mls/hr IV .Q10H [facility] Last Admin: 02/04/17 07:35 Dose: Not Given Piperacillin Sod/Tazobactam (Sod 3.375 gm/ Sodium Chloride) 100 mls @ 200 mls/ hr IVPB Q8H [facility] Last Admin: 02/04/17 05:19 Dose: 200 mls/hr Pantoprazole Sodium (Protonix Inj) 40 mg IVP DAILY [facility] Last Admin: 02/03/17 10:47 Dose: 40 mg Saccharomyces Boulardii (Florastor) 250 mg PO BID [facility] Last Admin: 02/03/17 21:47 Dose: 250 mg - Labs Labs: 02/04/17 08:23 02/04/17 08:23 PT 12.3 SECONDS (9.7-12.2) H 02/03/17 08:36 INR 1.1 02/03/17 08:36 APTT 37 SECONDS (21-34) H 01/31/17 20:12 - Constitutional Appears: Non-toxic, No Acute Distress - Eye Exam Eye Exam: EOMI, PERRL - ENT Exam ENT Exam: Mucous Membranes Moist - Respiratory Exam Respiratory Exam: Clear to Ausculation Bilateral. absent: Rales, Rhonchi, Wheezes - Cardiovascular Exam Cardiovascular Exam: RRR, +S1, +S2 - GI/Abdominal Exam GI & Abdominal Exam: Soft, Tenderness (RUQ), Normal Bowel Sounds. absent: Distended, Firm, Guarding, Rigid, Organomegaly - Extremities Exam Extremities Exam: Normal Inspection. absent: Pedal Edema - Neurological Exam Neurological Exam: Alert, Awake, Oriented x3 - Psychiatric Exam Psychiatric exam: Normal Affect, Normal Mood - Skin Skin Exam: Dry, Warm Assessment and Plan - Assessment and Plan (Free Text) Assessment: Patient is a 36yo female with PMHx significant for anxiety/depression and gallstones who presented to the hospital with diffuse itching and abdominal pain. -Elevated LFTs and abdominal pain 2/2 obstructive jaundice 2/2 choledocolithiasis -Cholelithiasis -Pruritus 2/2 above Plan: -S/P ERCP with SpyGlass lithotripsy to remove large choledocolith; removed partially, some stone impacted in duct; stent placed -If symptoms persist, will perform repeat ERCP Monday -LFTs downtrending again today, continue to monitor -Diet as tolerated; scale back if pain persists -Surgery following -Continued on IV Zosyn -SMA noted to be weakly positive at 1:20; will need monitoring of LFTs as outpatient -Analgesia/antiemetics PRN per primary service <Koffi Gordon - Last Filed: 02/04/17 09:31> Objective - Vital Signs/Intake and Output Vital Signs (last 24 hours): Temp Pulse Resp BP Pulse Ox 98.3 F 72 18 95/53 L 100 02/04/17 00:00 02/04/17 00:00 02/04/17 00:00 02/04/17 00:00 02/04/17 00:00 Intake and Output: 02/04/17 02/04/17 06:59 18:59 Intake Total 1140 Balance 1140 - Medications Medications: Current Medications Diphenhydramine HCl (Benadryl) 25 mg IVP Q6 PRN PRN Reason: Itching / Pruritus Last Admin: 02/03/17 22:18 Dose: 25 mg Potassium Chloride/Dextrose/Sod Cl (Potassium Chl 20 Meq In D5-1/2ns) 1,000 mls @ 100 mls/hr IV .Q10H [facility] Last Admin: 02/04/17 07:35 Dose: Not Given Piperacillin Sod/Tazobactam (Sod 3.375 gm/ Sodium Chloride) 100 mls @ 200 mls/ hr IVPB Q8H [facility] Last Admin: 02/04/17 05:19 Dose: 200 mls/hr Pantoprazole Sodium (Protonix Inj) 40 mg IVP DAILY [facility] Last Admin: 02/03/17 10:47 Dose: 40 mg Saccharomyces Boulardii (Florastor) 250 mg PO BID [facility] Last Admin: 02/03/17 21:47 Dose: 250 mg - Labs Labs: 02/04/17 08:23 02/04/17 08:23 PT 12.3 SECONDS (9.7-12.2) H 02/03/17 08:36 INR 1.1 02/03/17 08:36 APTT 37 SECONDS (21-34) H 01/31/17 20:12 Attending/Attestation - Attestation I have personally seen and examined this patient.: Yes I have fully participated in the care of the patient.: Yes I have reviewed all pertinent clinical information, including history, physical exam and plan: Yes Notes (Text): 02/04/17 09:29 36 year old female with h/o cholelithiasis admitted with abdominal pain and jaundice, found to have large impacted CBD stone s/p ERCP with sphincterotomy, spyglass with EHL, and stent placement. 1. Choledocholithiasis 2. Abdominal pain 3. Cholangitis Plan: -LFTs continuing to improve downtrending -still with some RUQ pain and mild pruritis -diet as tolerated -continue antibiotics -large calcified CBD stone, lithotripsy performed, but extraction incomplete, will need repeat ERCP to complete duct clearance -would monitor today due to ongoing pain -she has applied for [facility] care she says so that follow up can be arranged -if she is doing better tomorrow, she can go home with outpatient follow up with repeat ERCP
[2017-02-04] MEDS: Saccharomyces Boulardi 250 mg Cap PO SCH ×2 (09:34→17:48)
--- NOTE | 2017-02-04 09:41 | CP.PCM.PN ---
Subjective - Date & Time of Evaluation Date of Evaluation: 02/04/17 Time of Evaluation: 09:37 - Subjective Subjective: Gen Sx: Dr Worthy Pt S&E. Complains of abdominal pain, 7/10 in RUQ. Mild nausea. Return of pruritus. d/w GI, plan for possible repeat ERCP monday. Objective - Vital Signs/Intake and Output Vital Signs (last 24 hours): Temp Pulse Resp BP Pulse Ox 98.3 F 72 18 95/53 L 100 02/04/17 00:00 02/04/17 00:00 02/04/17 00:00 02/04/17 00:00 02/04/17 00:00 Intake and Output: 02/04/17 02/04/17 06:59 18:59 Intake Total 1140 Balance 1140 - Medications Medications: Current Medications Diphenhydramine HCl (Benadryl) 25 mg IVP Q6 PRN PRN Reason: Itching / Pruritus Last Admin: 02/03/17 22:18 Dose: 25 mg Potassium Chloride/Dextrose/Sod Cl (Potassium Chl 20 Meq In D5-1/2ns) 1,000 mls @ 100 mls/hr IV .Q10H [facility] Last Admin: 02/04/17 09:34 Dose: 100 mls/hr Piperacillin Sod/Tazobactam (Sod 3.375 gm/ Sodium Chloride) 100 mls @ 200 mls/ hr IVPB Q8H [facility] Last Admin: 02/04/17 05:19 Dose: 200 mls/hr Pantoprazole Sodium (Protonix Inj) 40 mg IVP DAILY [facility] Last Admin: 02/04/17 09:33 Dose: 40 mg Saccharomyces Boulardii (Florastor) 250 mg PO BID [facility] Last Admin: 02/04/17 09:34 Dose: 250 mg - Labs Labs: 02/04/17 08:23 02/04/17 08:23 PT 12.3 SECONDS (9.7-12.2) H 02/03/17 08:36 INR 1.1 02/03/17 08:36 APTT 37 SECONDS (21-34) H 01/31/17 20:12 - Constitutional Appears: Non-toxic, No Acute Distress - Respiratory Exam Respiratory Exam: absent: Accessory Muscle Use, Respiratory Distress - Cardiovascular Exam Cardiovascular Exam: REGULAR RHYTHM - GI/Abdominal Exam GI & Abdominal Exam: Soft, Tenderness (RUQ pain). absent: Distended - Neurological Exam Neurological Exam: Alert, Awake, Oriented x3 - Psychiatric Exam Psychiatric exam: Normal Affect, Normal Mood - Skin Skin Exam: Warm. absent: Normal Color (improved jaundice) Assessment and Plan - Assessment and Plan (Free Text) Assessment: 36F with choledocholithiasis s/p ERCP with spyglass lithotripsy Plan: per GI possible repeat ERCP monday will consider lap leyda to follow d/w Dr Zaynab Bianchi, PGY2
--- NOTE | 2017-02-04 11:28 | CP.PCM.PN ---
Subjective - Date & Time of Evaluation Date of Evaluation: 02/04/17 Time of Evaluation: 11:26 - Subjective Subjective: Patient complains of persistent RUQ pain, but less severe than yesterday. She denies having nausea, vomiting. She had one formed stool today. Objective - Vital Signs/Intake and Output Vital Signs (last 24 hours): Temp Pulse Resp BP Pulse Ox 97.7 F 63 20 91/56 L 99 02/04/17 07:00 02/04/17 07:00 02/04/17 07:00 02/04/17 07:00 02/04/17 07:00 Intake and Output: 02/04/17 02/04/17 06:59 18:59 Intake Total 1140 Balance 1140 - Medications Medications: Current Medications Diphenhydramine HCl (Benadryl) 25 mg IVP Q6 PRN PRN Reason: Itching / Pruritus Last Admin: 02/03/17 22:18 Dose: 25 mg Potassium Chloride/Dextrose/Sod Cl (Potassium Chl 20 Meq In D5-1/2ns) 1,000 mls @ 100 mls/hr IV .Q10H [facility] Last Admin: 02/04/17 09:34 Dose: 100 mls/hr Piperacillin Sod/Tazobactam (Sod 3.375 gm/ Sodium Chloride) 100 mls @ 200 mls/ hr IVPB Q8H [facility] Last Admin: 02/04/17 05:19 Dose: 200 mls/hr Morphine Sulfate (Morphine) 2 mg IVP Q4 PRN PRN Reason: Pain, moderate (4-7) Pantoprazole Sodium (Protonix Inj) 40 mg IVP DAILY [facility] Last Admin: 02/04/17 09:33 Dose: 40 mg Saccharomyces Boulardii (Florastor) 250 mg PO BID [facility] Last Admin: 02/04/17 09:34 Dose: 250 mg - Labs Labs: 02/04/17 08:23 02/04/17 08:23 PT 12.3 SECONDS (9.7-12.2) H 02/03/17 08:36 INR 1.1 02/03/17 08:36 APTT 37 SECONDS (21-34) H 01/31/17 20:12 - Constitutional Appears: No Acute Distress - Head Exam Head Exam: ATRAUMATIC, NORMOCEPHALIC - Eye Exam Eye Exam: EOMI, PERRL - Neck Exam Neck Exam: absent: Lymphadenopathy, Thyromegaly - Respiratory Exam Respiratory Exam: NORMAL BREATHING PATTERN. absent: Rhonchi, Wheezes - Cardiovascular Exam Cardiovascular Exam: REGULAR RHYTHM, +S1, +S2. absent: Gallop, Rubs, Murmur - GI/Abdominal Exam GI & Abdominal Exam: Soft, Tenderness, Hypoactive Bowel Sounds. absent: Mass, Organomegaly - Rectal Exam Rectal Exam: Deferred - Extremities Exam Extremities Exam: absent: Calf Tenderness, Pedal Edema Assessment and Plan (1) Choledocholithiasis with obstruction Assessment & Plan: Liver enzymes are improving: AST 70 (was 128); ALT 125 (177); ALKP 493 (701); TBILI 2.7 (4.3). However, she continues to complain of significant RUQ pain. Will check amylase and repeat CT scan. Status: Acute
[2017-02-04 13:19] LABS: AMYLASE 202 U/L (30-110)
--- NOTE | 2017-02-04 13:39 | CP.PCM.PN ---
Subjective - Date & Time of Evaluation Date of Evaluation: 02/04/17 Time of Evaluation: 08:45 - Subjective Subjective: PGY1 Progress Note for Dr. Bellamy: Patient seen and examined. Patient with complaint of right upper quadrant abdominal pain, denies nausea and vomiting. Patient states she does not have much appetite. Patient reports BM yesterday, states it was yellow-tinged in color. Objective - Vital Signs/Intake and Output Vital Signs (last 24 hours): Temp Pulse Resp BP Pulse Ox 97.7 F 63 20 91/56 L 99 02/04/17 07:00 02/04/17 07:00 02/04/17 07:00 02/04/17 07:00 02/04/17 07:00 Intake and Output: 02/04/17 02/04/17 06:59 18:59 Intake Total 1140 Balance 1140 - Medications Medications: Current Medications Diphenhydramine HCl (Benadryl) 25 mg IVP Q6 PRN PRN Reason: Itching / Pruritus Last Admin: 02/03/17 22:18 Dose: 25 mg Potassium Chloride/Dextrose/Sod Cl (Potassium Chl 20 Meq In D5-1/2ns) 1,000 mls @ 100 mls/hr IV .Q10H [facility] Last Admin: 02/04/17 09:34 Dose: 100 mls/hr Piperacillin Sod/Tazobactam (Sod 3.375 gm/ Sodium Chloride) 100 mls @ 200 mls/ hr IVPB Q8H [facility] Last Admin: 02/04/17 05:19 Dose: 200 mls/hr Ibuprofen (Motrin Tab) 400 mg PO Q6H PRN PRN Reason: Pain, Mild (1-3) Morphine Sulfate (Morphine) 2 mg IVP Q4 PRN PRN Reason: Pain, moderate (4-7) Pantoprazole Sodium (Protonix Inj) 40 mg IVP DAILY [facility] Last Admin: 02/04/17 09:33 Dose: 40 mg Saccharomyces Boulardii (Florastor) 250 mg PO BID [facility] Last Admin: 02/04/17 09:34 Dose: 250 mg - Labs Labs: 02/04/17 08:23 02/04/17 08:23 PT 12.3 SECONDS (9.7-12.2) H 02/03/17 08:36 INR 1.1 02/03/17 08:36 APTT 37 SECONDS (21-34) H 01/31/17 20:12 - Constitutional Appears: Non-toxic, No Acute Distress - Head Exam Head Exam: ATRAUMATIC, NORMOCEPHALIC - Eye Exam Eye Exam: EOMI, Scleral icterus - ENT Exam ENT Exam: Mucous Membranes Moist - Respiratory Exam Respiratory Exam: Clear to Ausculation Bilateral, NORMAL BREATHING PATTERN - Cardiovascular Exam Cardiovascular Exam: +S1, +S2 - GI/Abdominal Exam GI & Abdominal Exam: Soft, Tenderness (RUQ, epigastric), Normal Bowel Sounds - Extremities Exam Extremities Exam: absent: Pedal Edema - Neurological Exam Neurological Exam: Alert, Awake - Psychiatric Exam Psychiatric exam: Normal Affect - Skin Skin Exam: Warm Additional comments: jaundice Assessment and Plan - Assessment and Plan (Free Text) Assessment: Obstructive jaundice -U/S abdomen: cholelithiasis with intrahepatic and extrahepatic bile duct dilatation. Cannot exclude distal common duct stones. CBD 9.6mm. Consider MRCP for further eval. -TBili 8.2 --> 7.6 -->6.9-->4.3--> 2.7 -AST 292 --> 244 --> 198-->128--> 70 -ALT 307 --> 261 --> 227-->177-->125 -Alk Phosphatase 969 -->870 --> 834-->701-->493 -continue zosyn as per GI -Benadryl 25mg ivp q6 prn pruritus -Protonix 40mg ivp daily -CLD -CT Abdomen/pelvis: multiple gallstones without CT evidence of acute cholecystitits. 1.7 cm stone seen at the cystic duct or at the mid portion of the common bile duct, mild to moderate intrahepatic biliary ductal dilatation. Otherwise no evidence of acute pathology in the abdomen/pelvis -General surgery consult: Dr. Worthy, help appreciated lap leyda to be deferred until patient has repeat ERCP -GI consult: Dr. Mann- agree with MRCP, recommend consult for Dr. Gordon Pt s/p EUS/ ERCP with partial stone removal, biliary stent, pancreatic duct stent. pt will need repeat ERCP. -hepatitis panel negative - IgG 1023.7 Pt with RUQ abdominal pain today on exam, repeat lipase 1015, amylase 202. increasing IV fluids, CLD, will continue to monitor. Pt may need repeat ERCP on Monday UTI -UA +leuk esterase and +bacteria -blood culture no growth 24h PPX -CLD, advance as tolerated -LR @ 200cc/h -Protonix 40mg ivp daily -SCDs
[2017-02-04] MEDS: Lactated Ringer's 1,000 ML IV SCH ×3 (13:43→23:47)
[2017-02-04] MEDS ORDERED: Iohexol 240 (50 ml) PO ONE (18:56)
[2017-02-04] MEDS ORDERED: Iodixanol 320 MG/ML 100 ML BOTTLE IV ONE (21:29)
[2017-02-04] MEDS: DiphenhydrAMINE 50 mg/ml Inj IVP PRN (23:44)
[2017-02-05] MEDS: Lactated Ringer's 1,000 ML IV SCH ×4 (03:44→21:56)
[2017-02-05] MEDS: Piperacillin/Tazobact 3.375 GM in Sodium Chloride 100 ML IVPB SCH ×3 (05:20→22:00)
--- NOTE | 2017-02-05 06:52 | CP.PCM.PN ---
Subjective - Date & Time of Evaluation Date of Evaluation: 02/05/17 Time of Evaluation: 08:30 - Subjective Subjective: Medicine Note- Hospitalist Service Patient was seen and examined at bedside. Patient reports she still has abdominal pain, currently in the RUQ. She says it is about a 5/10. Patient encouraged to eat as tolerated. No events overnight per nursing. Objective - Vital Signs/Intake and Output Vital Signs (last 24 hours): Temp Pulse Resp BP Pulse Ox 97.9 F 66 20 99/59 L 100 02/04/17 23:17 02/04/17 23:17 02/04/17 23:17 02/04/17 23:17 02/04/17 23:17 Intake and Output: 02/04/17 02/05/17 18:59 06:59 Intake Total 1940 Balance 1940 - Medications Medications: Current Medications Diphenhydramine HCl (Benadryl) 25 mg IVP Q6 PRN PRN Reason: Itching / Pruritus Last Admin: 02/04/17 23:44 Dose: 25 mg Piperacillin Sod/Tazobactam (Sod 3.375 gm/ Sodium Chloride) 100 mls @ 200 mls/ hr IVPB Q8H [facility] Last Admin: 02/05/17 05:20 Dose: 200 mls/hr Lactated Ringer's (Lactated Ringer's) 1,000 mls @ 200 mls/hr IV .Q5H [facility] Last Admin: 02/05/17 03:44 Dose: 200 mls/hr Ibuprofen (Motrin Tab) 400 mg PO Q6H PRN PRN Reason: Pain, Mild (1-3) Last Admin: 02/04/17 13:46 Dose: 400 mg Morphine Sulfate (Morphine) 2 mg IVP Q4 PRN PRN Reason: Pain, moderate (4-7) Pantoprazole Sodium (Protonix Inj) 40 mg IVP DAILY [facility] Last Admin: 02/04/17 09:33 Dose: 40 mg Saccharomyces Boulardii (Florastor) 250 mg PO BID [facility] Last Admin: 02/04/17 17:48 Dose: 250 mg - Labs Labs: 02/04/17 08:23 02/04/17 08:23 PT 12.3 SECONDS (9.7-12.2) H 02/03/17 08:36 INR 1.1 02/03/17 08:36 APTT 37 SECONDS (21-34) H 01/31/17 20:12 - Constitutional Appears: Non-toxic, No Acute Distress - Head Exam Head Exam: ATRAUMATIC, NORMAL INSPECTION, NORMOCEPHALIC - Eye Exam Eye Exam: PERRL. absent: Scleral icterus Pupil Exam: NORMAL ACCOMODATION, PERRL - ENT Exam ENT Exam: Mucous Membranes Moist - Respiratory Exam Respiratory Exam: Clear to Ausculation Bilateral, NORMAL BREATHING PATTERN. absent: Rales, Rhonchi, Wheezes - Cardiovascular Exam Cardiovascular Exam: REGULAR RHYTHM, +S1, +S2 - GI/Abdominal Exam GI & Abdominal Exam: Soft, Normal Bowel Sounds. absent: Tenderness, Diminished Bowel Sounds, Hypoactive Bowel Sounds - Extremities Exam Extremities Exam: Normal Capillary Refill, Normal Inspection - Neurological Exam Neurological Exam: Alert, Awake, Oriented x3 - Psychiatric Exam Psychiatric exam: Normal Affect, Normal Mood - Skin Skin Exam: Dry, Intact, Normal Color, Warm Assessment and Plan - Assessment and Plan (Free Text) Assessment: Obstructive jaundice -U/S abdomen: cholelithiasis with intrahepatic and extrahepatic bile duct dilatation. Cannot exclude distal common duct stones. CBD 9.6mm. Consider MRCP for further eval. -TBili 8.2 --> 7.6 -->6.9-->4.3--> 2.7--> 2.9 -AST 292 --> 244 --> 198-->128--> 70--> 69 -ALT 307 --> 261 --> 227-->177-->125--> 103 -Alk Phosphatase 969 -->870 --> 834-->701-->493--> 455 -continue zosyn as per GI -Benadryl 25mg ivp q6 prn pruritus -Protonix 40mg ivp daily -CLD -CT Abdomen/pelvis: multiple gallstones without CT evidence of acute cholecystitits. 1.7 cm stone seen at the cystic duct or at the mid portion of the common bile duct, mild to moderate intrahepatic biliary ductal dilatation. Otherwise no evidence of acute pathology in the abdomen/pelvis -General surgery consult: Dr. Worthy, help appreciated lap leyda to be deferred until patient has repeat ERCP -GI consult: Dr. Mann- agree with MRCP, recommend consult for Dr. Gordon Pt s/p EUS/ ERCP with partial stone removal, biliary stent, pancreatic duct stent. pt will need repeat ERCP. -hepatitis panel negative - IgG 1023.7 Pt with RUQ abdominal pain today on exam, repeat lipase 1015, amylase 202. increasing IV fluids, CLD, will continue to monitor. Discussed case with Dr. Gordon, patient will be monitored for one more day. If pain improves, patient may possibly be discharged tomorrow AM. UTI -UA +leuk esterase and +bacteria Urine culture negative -blood culture no growth 3 days PPX -CLD, advance as tolerated -LR @ 200cc/h -Protonix 40mg ivp daily -SCDs
[2017-02-05 08:29] LABS: BASO # 0.1 K/uL (0.0-0.2); BASO % 0.7 % (0.0-2.0); EOS # 0.3 K/uL (0.0-0.7); EOS % 3.2 % (0.0-4.0); LYMPH # 1.7 K/uL (1.0-4.3); LYMPH % 18.9 % (20.0-40.0); MEAN CELL VOLUME 86.8 fL (81.0-99.0); MEAN CORPUSCULAR HEMOGLOBIN 28.9 pg (27.0-31.0); MEAN CORPUSCULAR HGB CONC 33.3 g/dL (33.0-37.0); MEAN PLATELET VOLUME 9.2 fL (7.2-11.7); MONO # 0.6 K/uL (0.0-0.8); MONO % 6.6 % (0.0-10.0); RED CELL DISTRIBUTION WIDTH 17.2 % (11.5-14.5); WHITE BLOOD COUNT 9.1 K/uL (4.8-10.8)
[2017-02-05 08:45] LABS: CHLORIDE 103 mmol/L (98-107); POTASSIUM 3.7 mmol/L (3.6-5.2); SODIUM 137 mmol/L (132-148)
[2017-02-05 08:47] LABS: GFR AFRICAN-AMERICAN > 60
[2017-02-05 08:48] LABS: ALB/GLOB RATIO 1.1 (1.0-2.1); ALKALINE PHOSPHATASE 455 U/L (38-126); ALT/SGPT 103 U/L (9-52); AST/SGOT 69 U/L (14-36); BILIRUBIN,TOTAL 2.8 mg/dL (0.2-1.3); BLOOD UREA NITROGEN 10 mg/dL (7-17); CARBON DIOXIDE 26 mmol/L (22-30); GLUCOSE,RANDOM 90 mg/dL (65-105); TOTAL PROTEIN 6.5 g/dL (6.3-8.3)
--- NOTE | 2017-02-05 08:57 | CT ---
PROCEDURE: CT Abdomen and Pelvis with contrast HISTORY: RUQ post ERCP COMPARISON: 02/01/2017. TECHNIQUE: Contrast dose: 100 mL Visipaque Radiation dose: Total exam DLP = 230.17 mGy-cm. This CT exam was performed using one or more of the following dose reduction techniques: Automated exposure control, adjustment of the mA and/or kV according to patient size, and/or use of iterative reconstruction technique. FINDINGS: LOWER THORAX: There is bibasilar subsegmental atelectasis. LIVER: The liver is normal in size and there is homogeneous enhancement. There is mild intrahepatic biliary ductal dilatation. GALLBLADDER AND BILE DUCTS: There are calcified and non calcified gallstones. There is a metallic stent in the common bile duct extending to the duodenum. Also noted is a stent in the pancreatic duct in the region of the head of the pancreas. PANCREAS: Normal in size and appearance. No gross lesion or ductal dilatation. SPLEEN: Normal in size and appearance. ADRENALS: Both adrenal glands are normal in size without discrete nodule. KIDNEYS AND URETERS: Both kidneys are normal in size and there is homogeneous enhancement. No hydronephrosis. No solid mass. VASCULATURE: No aortic aneurysm. BOWEL: The small bowel loops are normal in caliber. No obstruction. No gross mural thickening. The colon is unremarkable. APPENDIX: Normal appendix. PERITONEUM: No free fluid. No free air. LYMPH NODES: No enlarged lymph nodes. BLADDER: Unremarkable. REPRODUCTIVE: The uterus is normal in size. An intrauterine device remains in place. BONES: No acute fracture. Within normal limits for the patient's age. OTHER FINDINGS: None. IMPRESSION: 1. Cholelithiasis and mild intrahepatic biliary ductal dilatation. 2. Internal drainage metallic stent in the common bile duct terminating in the duodenum.
[2017-02-05] MEDS: Saccharomyces Boulardi 250 mg Cap PO SCH ×2 (09:20→18:48)
--- NOTE | 2017-02-05 09:49 | CP.PCM.PN ---
<LitzyArcadio - Last Filed: 02/05/17 09:46> Subjective - Date & Time of Evaluation Date of Evaluation: 02/05/17 Time of Evaluation: 09:10 - Subjective Subjective: PGY4 GI Fellow Progress Note Patient seen and examined bedside this morning. The patient states that she is feeling slightly better today with pain at a 5/10. Denies any nausea, vomiting and is tolerating liquid diet without issues. She describes pain as more sharp in the RUQ which is different from cramping epigastric pain with which she initially presented. No events overnight. 12 system ROS performed and negative except where stated. Objective - Vital Signs/Intake and Output Vital Signs (last 24 hours): Temp Pulse Resp BP Pulse Ox 98.3 F 68 17 94/54 L 99 02/05/17 07:40 02/05/17 07:40 02/05/17 07:40 02/05/17 07:40 02/05/17 07:40 Intake and Output: 02/05/17 02/05/17 06:59 18:59 Intake Total 1940 Balance 1940 - Medications Medications: Current Medications Diphenhydramine HCl (Benadryl) 25 mg IVP Q6 PRN PRN Reason: Itching / Pruritus Last Admin: 02/04/17 23:44 Dose: 25 mg Piperacillin Sod/Tazobactam (Sod 3.375 gm/ Sodium Chloride) 100 mls @ 200 mls/ hr IVPB Q8H [facility] Last Admin: 02/05/17 05:20 Dose: 200 mls/hr Lactated Ringer's (Lactated Ringer's) 1,000 mls @ 200 mls/hr IV .Q5H [facility] Last Admin: 02/05/17 03:44 Dose: 200 mls/hr Ibuprofen (Motrin Tab) 400 mg PO Q6H PRN PRN Reason: Pain, Mild (1-3) Last Admin: 02/04/17 13:46 Dose: 400 mg Morphine Sulfate (Morphine) 2 mg IVP Q4 PRN PRN Reason: Pain, moderate (4-7) Pantoprazole Sodium (Protonix Inj) 40 mg IVP DAILY [facility] Last Admin: 02/05/17 09:22 Dose: 40 mg Saccharomyces Boulardii (Florastor) 250 mg PO BID [facility] Last Admin: 02/05/17 09:20 Dose: 250 mg - Labs Labs: 02/05/17 08:14 02/05/17 08:14 PT 12.3 SECONDS (9.7-12.2) H 02/03/17 08:36 INR 1.1 02/03/17 08:36 APTT 37 SECONDS (21-34) H 01/31/17 20:12 - Constitutional Appears: Non-toxic, No Acute Distress - Eye Exam Eye Exam: EOMI, PERRL - ENT Exam ENT Exam: Mucous Membranes Moist - Respiratory Exam Respiratory Exam: Clear to Ausculation Bilateral. absent: Rales, Rhonchi, Wheezes - Cardiovascular Exam Cardiovascular Exam: RRR, +S1, +S2 - GI/Abdominal Exam GI & Abdominal Exam: Soft, Tenderness (RUQ), Normal Bowel Sounds. absent: Distended, Firm, Guarding, Rigid, Organomegaly - Extremities Exam Extremities Exam: Normal Inspection. absent: Pedal Edema - Neurological Exam Neurological Exam: Alert, Awake, Oriented x3 - Psychiatric Exam Psychiatric exam: Normal Affect, Normal Mood - Skin Skin Exam: Dry, Warm Assessment and Plan - Assessment and Plan (Free Text) Assessment: Patient is a 36yo female with PMHx significant for anxiety/depression and gallstones who presented to the hospital with diffuse itching and abdominal pain. -Elevated LFTs and abdominal pain 2/2 obstructive jaundice 2/2 choledocolithiasis -Elevated lipase -Cholelithiasis -Pruritus 2/2 above, resolving Plan: -Pain persists, though improved - continue to treat medically with IV analgesia , slowly advancing diet and aggressive IVF as ordered -Lipase elevated though pain in RUQ not typical of pancreatitis and imaging also unremarkable for any pancreatic inflammation; suspect lipasemia 2/2 recent ERCP and ductal manipulation -No plan for repeat ERCP at this time -Continue to monitor LFTs -Diet as tolerated -Surgery following -Continued on IV Zosyn -SMA noted to be weakly positive at 1:20; will need monitoring of LFTs as outpatient -Analgesia/antiemetics PRN per primary service <Koffi Gordon - Last Filed: 02/05/17 09:55> Objective - Vital Signs/Intake and Output Vital Signs (last 24 hours): Temp Pulse Resp BP Pulse Ox 98.3 F 68 17 94/54 L 99 02/05/17 07:40 02/05/17 07:40 02/05/17 07:40 02/05/17 07:40 02/05/17 07:40 Intake and Output: 02/05/17 02/05/17 06:59 18:59 Intake Total 1939 Balance 1939 - Medications Medications: Current Medications Diphenhydramine HCl (Benadryl) 25 mg IVP Q6 PRN PRN Reason: Itching / Pruritus Last Admin: 02/04/17 23:44 Dose: 25 mg Piperacillin Sod/Tazobactam (Sod 3.375 gm/ Sodium Chloride) 100 mls @ 200 mls/ hr IVPB Q8H [facility] Last Admin: 02/05/17 05:20 Dose: 200 mls/hr Lactated Ringer's (Lactated Ringer's) 1,000 mls @ 200 mls/hr IV .Q5H [facility] Last Admin: 02/05/17 03:44 Dose: 200 mls/hr Ibuprofen (Motrin Tab) 400 mg PO Q6H PRN PRN Reason: Pain, Mild (1-3) Last Admin: 02/04/17 13:46 Dose: 400 mg Morphine Sulfate (Morphine) 2 mg IVP Q4 PRN PRN Reason: Pain, moderate (4-7) Pantoprazole Sodium (Protonix Inj) 40 mg IVP DAILY [facility] Last Admin: 02/05/17 09:22 Dose: 40 mg Saccharomyces Boulardii (Florastor) 250 mg PO BID [facility] Last Admin: 02/05/17 09:20 Dose: 250 mg - Labs Labs: 02/05/17 08:14 02/05/17 08:14 PT 12.3 SECONDS (9.7-12.2) H 02/03/17 08:36 INR 1.1 02/03/17 08:36 APTT 37 SECONDS (21-34) H 01/31/17 20:12 Attending/Attestation - Attestation I have personally seen and examined this patient.: Yes I have fully participated in the care of the patient.: Yes I have reviewed all pertinent clinical information, including history, physical exam and plan: Yes Notes (Text): 02/05/17 09:51 36 year old female with h/o cholelithiasis admitted with abdominal pain and jaundice, found to have large impacted CBD stone s/p ERCP with sphincterotomy, spyglass with EHL, and stent placement. 1. Choledocholithiasis 2. Pancreatitis 3. Cholangitis Plan: -mild pancreatitis -recommend LR @200cc/hr -LFTs continuing to improve downtrending -low fat diet as tolerated -continue antibiotics -large calcified CBD stone, lithotripsy performed, but extraction incomplete, will need repeat ERCP to complete duct clearance
[2017-02-06] MEDS: DiphenhydrAMINE 50 mg/ml Inj IVP PRN (00:14)
[2017-02-06] MEDS: Lactated Ringer's 1,000 ML IV SCH ×6 (00:45→16:35)
[2017-02-06] MEDS: Piperacillin/Tazobact 3.375 GM in Sodium Chloride 100 ML IVPB SCH ×2 (05:03→14:39)
[2017-02-06 07:41] LABS: CHLORIDE 99 mmol/L (98-107)
[2017-02-06 07:42] LABS: POTASSIUM 3.8 mmol/L (3.6-5.2); SODIUM 134 mmol/L (132-148)
[2017-02-06 07:44] LABS: CARBON DIOXIDE 27 mmol/L (22-30); GFR AFRICAN-AMERICAN > 60
[2017-02-06 07:45] LABS: ALKALINE PHOSPHATASE 407 U/L (38-126); ALT/SGPT 86 U/L (9-52); AST/SGOT 61 U/L (14-36); BILIRUBIN,TOTAL 2.2 mg/dL (0.2-1.3); BLOOD UREA NITROGEN 7 mg/dL (7-17); CALCIUM 8.6 mg/dl (8.6-10.4); GLUCOSE,RANDOM 94 mg/dL (65-105); TOTAL PROTEIN 6.2 g/dL (6.3-8.3)
[2017-02-06 07:46] LABS: BASO % 0.4 % (0.0-2.0); EOS # 0.4 K/uL (0.0-0.7); LYMPH # 1.6 K/uL (1.0-4.3); LYMPH % 22.5 % (20.0-40.0); MEAN CELL VOLUME 88.4 fL (81.0-99.0); MEAN CORPUSCULAR HEMOGLOBIN 29.6 pg (27.0-31.0); MEAN CORPUSCULAR HGB CONC 33.6 g/dL (33.0-37.0); MEAN PLATELET VOLUME 9.3 fL (7.2-11.7); MONO # 0.5 K/uL (0.0-0.8); MONO % 6.6 % (0.0-10.0); RED CELL DISTRIBUTION WIDTH 16.9 % (11.5-14.5); WHITE BLOOD COUNT 7.1 K/uL (4.8-10.8)
[2017-02-06 08:09] LABS: ALB/GLOB RATIO 1.1 (1.0-2.1)
--- NOTE | 2017-02-06 08:21 | CP.PCM.PN ---
<Rio Bianchi Bushra - Last Filed: 02/06/17 08:20> Subjective - Date & Time of Evaluation Date of Evaluation: 02/06/17 Time of Evaluation: 08:20 - Subjective Subjective: Gen Sx: Dr Worthy Pt S&E. ALEXEI. Reports still with pain in RUQ. Jaundice improved. Denies N/V. Plan for repeat ERCP, today? Objective - Vital Signs/Intake and Output Vital Signs (last 24 hours): Temp Pulse Resp BP Pulse Ox 97.5 F L 62 19 89/54 L 98 02/06/17 07:50 02/06/17 07:50 02/06/17 07:50 02/06/17 07:50 02/06/17 07:50 - Medications Medications: Current Medications Diphenhydramine HCl (Benadryl) 25 mg IVP Q6 PRN PRN Reason: Itching / Pruritus Last Admin: 02/06/17 00:14 Dose: 25 mg Piperacillin Sod/Tazobactam (Sod 3.375 gm/ Sodium Chloride) 100 mls @ 200 mls/ hr IVPB Q8H [facility] Last Admin: 02/06/17 05:03 Dose: 200 mls/hr Lactated Ringer's (Lactated Ringer's) 1,000 mls @ 200 mls/hr IV .Q5H [facility] Last Admin: 02/06/17 05:01 Dose: 200 mls/hr Ibuprofen (Motrin Tab) 400 mg PO Q6H PRN PRN Reason: Pain, Mild (1-3) Last Admin: 02/04/17 13:46 Dose: 400 mg Morphine Sulfate (Morphine) 2 mg IVP Q4 PRN PRN Reason: Pain, moderate (4-7) Last Admin: 02/05/17 13:36 Dose: 2 mg Pantoprazole Sodium (Protonix Inj) 40 mg IVP DAILY [facility] Last Admin: 02/05/17 09:22 Dose: 40 mg Saccharomyces Boulardii (Florastor) 250 mg PO BID [facility] Last Admin: 02/05/17 18:48 Dose: 250 mg - Labs Labs: 02/06/17 07:19 02/06/17 07:19 PT 12.3 SECONDS (9.7-12.2) H 02/03/17 08:36 INR 1.1 02/03/17 08:36 APTT 37 SECONDS (21-34) H 01/31/17 20:12 - Constitutional Appears: Non-toxic, No Acute Distress - Respiratory Exam Respiratory Exam: absent: Accessory Muscle Use, Respiratory Distress - Cardiovascular Exam Cardiovascular Exam: REGULAR RHYTHM - GI/Abdominal Exam GI & Abdominal Exam: Soft, Tenderness (RUQ). absent: Distended - Neurological Exam Neurological Exam: Alert, Awake, Oriented x3 - Psychiatric Exam Psychiatric exam: Normal Affect, Normal Mood Assessment and Plan - Assessment and Plan (Free Text) Assessment: 36F with choledocholithiasis Plan: plan for repeat ERCP per GI lap leyda to follow will d/w Dr Zaynab Bianchi, PGY2 <Alberto Worthy B - Last Filed: 02/06/17 12:00> Objective - Vital Signs/Intake and Output Vital Signs (last 24 hours): Temp Pulse Resp BP Pulse Ox 97.5 F L 62 19 89/54 L 98 02/06/17 07:50 02/06/17 07:50 02/06/17 07:50 02/06/17 07:50 02/06/17 07:50 - Medications Medications: Current Medications Diphenhydramine HCl (Benadryl) 25 mg IVP Q6 PRN PRN Reason: Itching / Pruritus Last Admin: 02/06/17 00:14 Dose: 25 mg Piperacillin Sod/Tazobactam (Sod 3.375 gm/ Sodium Chloride) 100 mls @ 200 mls/ hr IVPB Q8H [facility] Last Admin: 02/06/17 05:03 Dose: 200 mls/hr Lactated Ringer's (Lactated Ringer's) 1,000 mls @ 200 mls/hr IV .Q5H [facility] Last Admin: 02/06/17 05:01 Dose: 200 mls/hr Ibuprofen (Motrin Tab) 400 mg PO Q6H PRN PRN Reason: Pain, Mild (1-3) Last Admin: 02/04/17 13:46 Dose: 400 mg Morphine Sulfate (Morphine) 2 mg IVP Q4 PRN PRN Reason: Pain, moderate (4-7) Last Admin: 02/05/17 13:36 Dose: 2 mg Pantoprazole Sodium (Protonix Inj) 40 mg IVP DAILY [facility] Last Admin: 02/06/17 09:57 Dose: 40 mg Saccharomyces Boulardii (Florastor) 250 mg PO BID [facility] Last Admin: 02/06/17 09:56 Dose: 250 mg - Labs Labs: 02/06/17 07:19 02/06/17 07:19 PT 12.3 SECONDS (9.7-12.2) H 02/03/17 08:36 INR 1.1 02/03/17 08:36 APTT 37 SECONDS (21-34) H 01/31/17 20:12 Attending/Attestation - Attestation I have personally seen and examined this patient.: Yes I have fully participated in the care of the patient.: Yes I have reviewed all pertinent clinical information, including history, physical exam and plan: Yes Notes (Text): 02/06/17 11:59 Pt was seen and examined at bedside 02/06/17 Agree with above note and assessment Pt with Cholecysistitis and cholelidocholithiasis S/P ERCP and stent Lipase is mildly elevated Repeat ERCP as per GI C.w current mx. Plan d.w pt in detail Risk and benefit explained in detail.
--- NOTE | 2017-02-06 08:48 | CP.PCM.PN ---
<Arcadio Mcghee - Last Filed: 02/06/17 10:16> Subjective - Date & Time of Evaluation Date of Evaluation: 02/06/17 Time of Evaluation: 08:20 - Subjective Subjective: PGY4 GI Fellow Progress Note Patient seen and examined bedside this morning. The patient states that she continues to feel better but maintains some minimal RUQ pain. Hungry and eager to eat. Passed stool overnight. 12 system ROS performed and negative except where stated. Objective - Vital Signs/Intake and Output Vital Signs (last 24 hours): Temp Pulse Resp BP Pulse Ox 97.5 F L 62 19 89/54 L 98 02/06/17 07:50 02/06/17 07:50 02/06/17 07:50 02/06/17 07:50 02/06/17 07:50 - Medications Medications: Current Medications Diphenhydramine HCl (Benadryl) 25 mg IVP Q6 PRN PRN Reason: Itching / Pruritus Last Admin: 02/06/17 00:14 Dose: 25 mg Piperacillin Sod/Tazobactam (Sod 3.375 gm/ Sodium Chloride) 100 mls @ 200 mls/ hr IVPB Q8H [facility] Last Admin: 02/06/17 05:03 Dose: 200 mls/hr Lactated Ringer's (Lactated Ringer's) 1,000 mls @ 200 mls/hr IV .Q5H [facility] Last Admin: 02/06/17 05:01 Dose: 200 mls/hr Ibuprofen (Motrin Tab) 400 mg PO Q6H PRN PRN Reason: Pain, Mild (1-3) Last Admin: 02/04/17 13:46 Dose: 400 mg Morphine Sulfate (Morphine) 2 mg IVP Q4 PRN PRN Reason: Pain, moderate (4-7) Last Admin: 02/05/17 13:36 Dose: 2 mg Pantoprazole Sodium (Protonix Inj) 40 mg IVP DAILY [facility] Last Admin: 02/05/17 09:22 Dose: 40 mg Saccharomyces Boulardii (Florastor) 250 mg PO BID [facility] Last Admin: 02/05/17 18:48 Dose: 250 mg - Labs Labs: 02/06/17 07:19 02/06/17 07:19 PT 12.3 SECONDS (9.7-12.2) H 02/03/17 08:36 INR 1.1 02/03/17 08:36 APTT 37 SECONDS (21-34) H 01/31/17 20:12 - Constitutional Appears: Non-toxic, No Acute Distress - Eye Exam Eye Exam: EOMI, PERRL - ENT Exam ENT Exam: Mucous Membranes Moist - Respiratory Exam Respiratory Exam: Clear to Ausculation Bilateral. absent: Rales, Rhonchi, Wheezes - Cardiovascular Exam Cardiovascular Exam: RRR, +S1, +S2 - GI/Abdominal Exam GI & Abdominal Exam: Soft, Tenderness (RUQ, minimal), Normal Bowel Sounds. absent: Distended, Firm, Guarding, Rigid, Organomegaly - Extremities Exam Extremities Exam: Normal Inspection. absent: Pedal Edema - Neurological Exam Neurological Exam: Alert, Awake, Oriented x3 - Psychiatric Exam Psychiatric exam: Normal Affect, Normal Mood - Skin Skin Exam: Dry, Warm Assessment and Plan - Assessment and Plan (Free Text) Assessment: Patient is a 36yo female with PMHx significant for anxiety/depression and gallstones who presented to the hospital with diffuse itching and abdominal pain. -Choledocolithiasis -Elevated LFTs 2/2 above -Elevated lipase -Cholelithiasis -Pruritus 2/2 above, resolved Plan: -Pain continues to improve -Advance diet as tolerated -Plan for ERCP as outpatient -LFTs downtrending -SMA noted to be weakly positive at 1:20; will need monitoring of LFTs as outpatient -Analgesia/antiemetics PRN per primary service -Will sign off. Thank you for allowing us to participate in the care of your patient. <Duane Aaron MD - Last Filed: 02/06/17 11:00> Objective - Vital Signs/Intake and Output Vital Signs (last 24 hours): Temp Pulse Resp BP Pulse Ox 97.5 F L 62 19 89/54 L 98 02/06/17 07:50 02/06/17 07:50 02/06/17 07:50 02/06/17 07:50 02/06/17 07:50 - Medications Medications: Current Medications Diphenhydramine HCl (Benadryl) 25 mg IVP Q6 PRN PRN Reason: Itching / Pruritus Last Admin: 02/06/17 00:14 Dose: 25 mg Piperacillin Sod/Tazobactam (Sod 3.375 gm/ Sodium Chloride) 100 mls @ 200 mls/ hr IVPB Q8H [facility] Last Admin: 02/06/17 05:03 Dose: 200 mls/hr Lactated Ringer's (Lactated Ringer's) 1,000 mls @ 200 mls/hr IV .Q5H [facility] Last Admin: 02/06/17 05:01 Dose: 200 mls/hr Ibuprofen (Motrin Tab) 400 mg PO Q6H PRN PRN Reason: Pain, Mild (1-3) Last Admin: 02/04/17 13:46 Dose: 400 mg Morphine Sulfate (Morphine) 2 mg IVP Q4 PRN PRN Reason: Pain, moderate (4-7) Last Admin: 02/05/17 13:36 Dose: 2 mg Pantoprazole Sodium (Protonix Inj) 40 mg IVP DAILY [facility] Last Admin: 02/06/17 09:57 Dose: 40 mg Saccharomyces Boulardii (Florastor) 250 mg PO BID [facility] Last Admin: 02/06/17 09:56 Dose: 250 mg - Labs Labs: 02/06/17 07:19 02/06/17 07:19 PT 12.3 SECONDS (9.7-12.2) H 02/03/17 08:36 INR 1.1 02/03/17 08:36 APTT 37 SECONDS (21-34) H 01/31/17 20:12 Attending/Attestation - Attestation I have personally seen and examined this patient.: Yes I have fully participated in the care of the patient.: Yes I have reviewed all pertinent clinical information, including history, physical exam and plan: Yes Notes (Text): 02/06/17 10:58 Patient seen with GI fellow on rounds this am. This is a 36 year old female with h/o cholelithiasis admitted with abdominal pain and jaundice, found to have large impacted CBD stone s/p ERCP with sphincterotomy, spyglass with EHL, and stent placement. Now with pancreatitis with pain getting better. Low fat diet as tolerated and repeat ERCP in 6-[address] Gordon for complete extraction. Thank you for letting us participate in the care of your patient.
[2017-02-06] MEDS: Saccharomyces Boulardi 250 mg Cap PO SCH ×2 (09:56→19:10)
[2017-02-06 16:05] VITALS: BP 92/59; PULSE 66; RESP 20; TEMP 97.9; O2SAT 96
--- NOTE | 2017-02-06 21:44 | CP.PCM.DIS ---
Provider - Provider Date of Admission: 01/31/17 22:49 Attending physician: Dr. Tr Bellamy Primary care physician: Bakari Novak MD Consults: Dr. Bennett (GI) Dr. Worthy ( Gen Surg) Time Spent in preparation of Discharge (in minutes): 45 Diagnosis - Discharge Diagnosis (1) Obstructive jaundice Status: Acute Comment: S/P ERCP 02/02 at [facility]. Lithotripsy with extraction of stones. Patient is to follow-up with a repeat ERCP in 6-8 weeks with possible elective laporoscopic cholecystectomy afterwards. Hospital Course - Lab Results Lab Results: Micro Results 02/01/17 03:00 Blood-Venous Blood Culture - Final NO GROWTH AFTER 5 DAYS 02/01/17 03:00 Blood-Venous Gram Stain - Final TEST NOT PERFORMED 02/01/17 02:30 Blood-Venous Blood Culture - Final NO GROWTH AFTER 5 DAYS 02/01/17 02:30 Blood-Venous Gram Stain - Final TEST NOT PERFORMED 02/03/17 07:00 Urine Urine Culture - Final No Growth (<1,000 CFU/ML) Most Recent Lab Values WBC 7.1 K/uL (4.8-10.8) 02/06/17 07:19 RBC 3.17 Mil/uL (3.80-5.20) L 02/06/17 07:19 Hgb 9.4 g/dL (11.0-16.0) L 02/06/17 07:19 Hct 28.0 % (34.0-47.0) L 02/06/17 07:19 MCV 88.4 fL (81.0-99.0) 02/06/17 07:19 MCH 29.6 pg (27.0-31.0) 02/06/17 07:19 MCHC 33.6 g/dL (33.0-37.0) 02/06/17 07:19 RDW 16.9 % (11.5-14.5) H 02/06/17 07:19 Plt Count 311 K/uL (130-400) 02/06/17 07:19 MPV 9.3 fL (7.2-11.7) 02/06/17 07:19 Neut % (Auto) 65.5 % (50.0-75.0) 02/06/17 07:19 Lymph % (Auto) 22.5 % (20.0-40.0) 02/06/17 07:19 [place] % (Auto) 6.6 % (0.0-10.0) 02/06/17 07:19 Eos % (Auto) 5.0 % (0.0-4.0) H 02/06/17 07:19 Baso % (Auto) 0.4 % (0.0-2.0) 02/06/17 07:19 Neut # 4.7 K/uL (1.8-7.0) 02/06/17 07:19 Lymph # 1.6 K/uL (1.0-4.3) 02/06/17 07:19 [place] # 0.5 K/uL (0.0-0.8) 02/06/17 07:19 Eos # 0.4 K/uL (0.0-0.7) 02/06/17 07:19 Baso # 0.0 K/uL (0.0-0.2) 02/06/17 07:19 Neutrophils % (Manual) 86 % (50-75) H 02/03/17 08:36 Band Neutrophils % 4 % (0-2) H 02/03/17 08:36 Lymphocytes % (Manual) 7 % (20-40) L 02/03/17 08:36 Monocytes % (Manual) 3 % (0-10) 02/03/17 08:36 Platelet Estimate Normal (NORMAL) 02/03/17 08:36 Hypochromasia (manual) Slight 02/03/17 08:36 Anisocytosis (manual) Slight 02/03/17 08:36 PT 12.3 SECONDS (9.7-12.2) H 02/03/17 08:36 INR 1.1 02/03/17 08:36 APTT 37 SECONDS (21-34) H 01/31/17 20:12 Sodium 134 mmol/L (132-148) 02/06/17 07:19 Potassium 3.8 mmol/L (3.6-5.2) 02/06/17 07:19 Chloride 99 mmol/L (98-107) 02/06/17 07:19 Carbon Dioxide 27 mmol/L (22-30) 02/06/17 07:19 Anion Gap 12 (10-20) 02/06/17 07:19 BUN 7 mg/dL (7-17) 02/06/17 07:19 Creatinine 0.6 MG/DL (0.7-1.2) L 02/06/17 07:19 Est GFR ( Amer) > 60 02/06/17 07:19 Est GFR (Non-Af Amer) > 60 02/06/17 07:19 Random Glucose 94 mg/dL (65-105) 02/06/17 07:19 Hemoglobin A1c 4.8 % (4.2-6.5) 02/01/17 03:17 Calcium 8.6 mg/dl (8.6-10.4) 02/06/17 07:19 Phosphorus 2.9 mg/dL (2.5-4.5) 02/03/17 08:36 Magnesium 1.8 mg/dL (1.6-2.3) 02/03/17 08:36 Total Bilirubin 2.2 mg/dL (0.2-1.3) H 02/06/17 07:19 Direct Bilirubin 6.7 mg/dL (0.0-0.4) H 02/01/17 15:41 AST 61 U/L (14-36) H 02/06/17 07:19 ALT 86 U/L (9-52) H 02/06/17 07:19 Alkaline Phosphatase 407 U/L (38-126) H 02/06/17 07:19 Total Protein 6.2 g/dL (6.3-8.3) L 02/06/17 07:19 Albumin 3.2 g/dL (3.5-5.0) L 02/06/17 07:19 Globulin 3.0 gm/dL (2.2-3.9) 02/06/17 07:19 Albumin/Globulin Ratio 1.1 (1.0-2.1) 02/06/17 07:19 Triglycerides 111 mg/dL (0-149) D 02/01/17 03:17 Cholesterol 268 mg/dL (0-199) H 02/01/17 03:17 LDL Cholesterol Direct 147 mg/dL (0-129) H 02/01/17 03:17 HDL Cholesterol 47 mg/dL (30-70) 02/01/17 03:17 Amylase 202 U/L (30-110) H 02/04/17 08:23 Lipase 229 U/L (23-300) 02/06/17 07:19 Urine Color Isabel (YELLOW) 01/31/17 19:48 Urine Clarity Hazy (Clear) 01/31/17 19:48 Urine pH 6.0 (5.0-8.0) 01/31/17 19:48 Ur Specific [place] 1.030 (1.003-1.030) 01/31/17 19:48 Urine Protein 1+ mg/dL (NEGATIVE) H 01/31/17 19:48 Urine Glucose (UA) Normal mg/dL (Normal) 01/31/17 19:48 Urine Ketones 1+ mg/dL (NEGATIVE) H 01/31/17 19:48 Urine Blood Negative (NEGATIVE) 01/31/17 19:48 Urine Nitrate Negative (NEGATIVE) 01/31/17 19:48 Urine Bilirubin 2+ (NEGATIVE) H 01/31/17 19:48 Urine Urobilinogen 4.0 mg/dL (0.2-1.0) H 01/31/17 19:48 Ur Leukocyte Esterase Trace [place]ity/uL (Negative) H 01/31/17 19:48 Urine WBC (Auto) 8 /hpf (0-5) H 01/31/17 19:48 Urine RBC (Auto) 4 /hpf (0-3) H 01/31/17 19:48 Ur Squamous Epith Cells 22 /hpf (0-5) H 01/31/17 19:48 Urine Bacteria Few (<OCC) H 01/31/17 19:48 Urine HCG, Qual Negative (NEGATIVE) 02/03/17 04:09 IgG 1023.7 mg/dL (700.0-1600.0) 02/01/17 14:45 ELROY 6 Profile Negative (NEGATIVE) 02/01/17 14:45 Anti-Mitochondrial Ab Negative (Negative) 02/01/17 14:45 Smooth Muscle Ab Titer 1:20 Titer (< 1:20) H 02/01/17 14:45 Anti-Smooth Muscle Ab Positive (Negative) H 02/01/17 14:45 Liver/Kid Microsomes Ab <=20.0 U (<=20.0) 02/01/17 14:45 Hepatitis A IgM Ab Negative (NEGATIVE) 02/01/17 14:45 Hep Bs Antigen Negative (NEGATIVE) 02/01/17 14:45 Hep B Core IgM Ab Negative (NEGATIVE) 02/01/17 14:45 Hepatitis C Antibody Negative (NEGATIVE) 02/01/17 14:45 - Hospital Course Hospital Course: As per admission documentation: CC: abdominal pain and rash HPI: Patient is a 36 year old female with no PMHx presents with 2 weeks of epigastric pain. Patient reports the pain began with no inciting event and was located in the middle of her abdomen in the epigastric region. Pain was a 6/10 pressure like in nature that was intermittent and worse with food. Patient also had associated nausea and a decreased appetite. 1 and a half weeks ago patient started to notice she was becoming jaundiced and was having pruritus. She also noticed some darkening of her urine, and block sorter colored stool. She also noticed some linear ecchymosis on the sides of her thighs with no injury or trauma to the area that would come and go. The ecchymosis were like linear bands. Patient saw Dr Novak on Monday and had routine blood work and was given hydroxyzine and ciprofloxacin. On the day of admisison, patient had two episodes of nonbloody nonbilious emesis and worsening abdominal pain. Dr Novak also sent her in due to elevated total bilirubin, liver enzymes and alkaline phosphatase which was noted on her routine lab work from Monday. Patient denied fever, chills, diaphoresis, headaches, dizziness, lightheadedness, change in vision, change in hearing, sore throat, dysphagia, chest pain, palpitations, SOB , cough, hematemesis, diarrhea, constipation, hematochezia, melena, dysuria, leg pain, leg swelling, bleeding, travel, sick contacts, recent illness. Patient admitted to weakness, abdominal pain, nausea, vomiting, block sorter colored stool, urinary frequency, darkened urine, back pain, rash, pruritus, and easy bruising. Patient denies having colonoscopy or EGD in the past. Patient was admitted for obstructive jaundice. Patient's ultrasound showed cholelithiasis with intrahepatic and extrahepatid duct dilatation. Patient had an Elevated T bili of 8.2 and AST/ALT/ALP of 292/307/969 respectively. Patient was started on Rocephin and evaluted by both Gen sx: Dr. Worthy and GI, Dr. Lama. Patient's abdomen CT showed multiple gallstones with a 1.7cm stone at the cystic duct or mid portion of the CBD. Patient was also seen by GI, Dr. Bennett, who performed an ERCP on 02/02/17 at [place], for lithotripsy and stone removal, as well as metallic stenting of the CBD. Patient's repeat CT showed cholelithiasis and mild intrahepatic biliary ductal dilatation as well as the internal drainage metallic stent in the CBD. Patient's LFTs and T bili continued to trend downwards. Patient's symptoms improved and was able to tolerate solid food without difficulty. Patient was instructed to followup with GI for repeat ERCP in 6-8 weeks with possibly elective cholecystectomy after GI evaluation. - Date & Time of H&P Date of H&P: 02/01/17 Time of H&P: 01:07 Discharge Exam - Head Exam Head Exam: ATRAUMATIC, NORMAL INSPECTION, NORMOCEPHALIC - Eye Exam Eye Exam: EOMI, Normal appearance Pupil Exam: NORMAL ACCOMODATION, PERRL - ENT Exam ENT Exam: Mucous Membranes Moist - Respiratory Exam Respiratory Exam: Clear to PA & Lateral, NORMAL BREATHING PATTERN, UNREMARKABLE. absent: Rhonchi, Wheezes - Cardiovascular Exam Cardiovascular Exam: REGULAR RHYTHM, +S1, +S2 - GI/Abdominal Exam GI & Abdominal Exam: Normal Bowel Sounds, Soft. absent: Distended, Firm - Extremities Exam Extremities exam: normal capillary refill, pedal pulses present - Neurological Exam Neurological exam: Alert, CN II-XII Intact, Oriented x3 - Psychiatric Exam Psychiatric exam: Normal Affect, Normal Mood - Skin Skin Exam: Dry, Intact, Normal Color, Warm Discharge Plan - Follow Up Plan Condition: FAIR Disposition: HOME/ ROUTINE Additional Instructions: Patient is to be discharged home as per Dr. Bellamy. Patient is to follow-up with her primary doctor, Dr. Novak, within one week. Patient is to follow-up with GI, Dr. Bennett, within 2 weeks. Patient will need a repeat ERCP in 6-8 weeks. Patient is to follow-up with general surgery, Dr. Worthy, after evaluation by GI for an elective cholecystectomy. If symptoms worsen, patient is to return to the hospital for further evaluation and treatment. Referrals: Ward Bennett MD [Staff Provider] - Alberto Worthy MD [Staff Provider] - Bakari Noavk MD [Primary Care Provider] -
== END 2017-02-06 23:03 | disposition home or self-care (01) | DRG 207 ==
LOC: C.ER 17:41 → C.9E 22:49 → C.5T 02-01 06:52
PROVIDERS: ADMIT Internal Medicine; ATTEND Internal Medicine
PROC: 0FC98ZZ Extirpation of Matter from Common Bile Duct, Via Natural or Artificial Opening Endoscopic (ICD-10-PCS; principal; 2017-02-02)
PROC: 0F798DZ Dilation of Common Bile Duct with Intraluminal Device, Via Natural or Artificial Opening Endoscopic (ICD-10-PCS; 2017-02-02)
DX: K80.67 Calculus of gallbladder and bile duct with acute and chronic cholecystitis with obstruction (principal); K85.90 Acute pancreatitis without necrosis or infection, unspecified; K76.0 Fatty (change of) liver, not elsewhere classified; N39.0 Urinary tract infection, site not specified; E78.5 Hyperlipidemia, unspecified; L29.9 Pruritus, unspecified

== ENCOUNTER 2017-09-17 20:32 | Emergency (ER) | payer SELFPAY ==
[2017-09-17] MEDS ORDERED: Sodium Chloride 0.9% 1,000 ML IV ONE (21:00)
[2017-09-17 21:11] LABS: BASO % 0.6 % (0.0-2.0); EOS # 0.2 K/uL (0.0-0.7); EOS % 3.3 % (0.0-4.0); HEMOGLOBIN 11.3 g/dL (11.0-16.0); LYMPH # 2.1 K/uL (1.0-4.3); LYMPH % 31.5 % (20.0-40.0); MEAN CELL VOLUME 76.8 fL (81.0-99.0); MEAN CORPUSCULAR HEMOGLOBIN 24.9 pg (27.0-31.0); MEAN CORPUSCULAR HGB CONC 32.4 g/dL (33.0-37.0); MEAN PLATELET VOLUME 8.7 fL (7.2-11.7); MONO # 0.5 K/uL (0.0-0.8); MONO % 6.9 % (0.0-10.0); NEUT # 3.8 K/uL (1.8-7.0); NEUT % 57.7 % (50.0-75.0); NRBC % 0.1 % (0.0-2.0); RBC 4.52 Mil/uL (3.80-5.20); RED CELL DISTRIBUTION WIDTH 16.5 % (11.5-14.5); WHITE BLOOD COUNT 6.6 K/uL (4.8-10.8)
[2017-09-17] MEDS ORDERED: Sodium Chloride 0.9% 1,000 ML ONE (21:12)
[2017-09-17 21:23] LABS: ALB/GLOB RATIO 1.1 (1.0-2.1); ALBUMIN 4.3 g/dL (3.5-5.0); ALT/SGPT 43 U/L (9-52); AST/SGOT 103 U/L (14-36); BLOOD UREA NITROGEN 13 mg/dL (7-17); CALCIUM 8.8 mg/dl (8.6-10.4); GFR AFRICAN-AMERICAN > 60; GFR NON-AFRICAN AMERICAN > 60; LIPASE 176 U/L (23-300)
[2017-09-17 21:42] LABS: SQUAMOUS EPITHIAL 2 /hpf (0-5); URINE BACTERIA RARE (<OCC); URINE BILIRUBIN NEGATIVE (NEGATIVE); URINE BLOOD NEGATIVE (NEGATIVE); URINE CLARITY Clear (Clear); URINE COLOR Yellow (YELLOW); URINE GLUCOSE (UA) NORMAL (Normal); URINE LEUKOCYTE ESTERASE NEG Leu/uL (Negative); URINE NITRATE NEGATIVE (NEGATIVE); URINE PROTEIN NEGATIVE (NEGATIVE); URINE UROBILINOGEN NORMAL mg/dL (0.2-1.0)
[2017-09-17 21:46] LABS: HCG,QUALITATIVE URINE NEGATIVE (NEGATIVE)
[2017-09-17] MEDS ORDERED: Iodixanol 320 MG/ML 100 ML BOTTLE IV ONE (22:26)
[2017-09-18 01:23] VITALS: BP 93/60; PULSE 68; RESP 18; TEMP 97.4; O2SAT 99
--- NOTE | 2017-09-18 01:38 | US ---
EXAM: US Abdomen Limited, Right Upper Quadrant CLINICAL HISTORY: 37 years old, female; Pain; Abdominal pain; Epigastric; Additional info: Upper abdominal pain. H/o choledocolithiasis TECHNIQUE: Real-time ultrasound of the right upper quadrant with image documentation. COMPARISON: No relevant prior studies available. FINDINGS: Artifacts: Limited due to bowel gas shadowing. Limited due to shadowing from the ribs. Liver: The liver measures 14.91 cm. Limited evaluation of the liver due to shadowing. Minimal intrahepatic biliary ductal dilatation. There is hepatic pedal flow in the portal vein. Gallbladder: Gallbladder neck is difficult to evaluate. Partially contracted gallbladder with gallstones and 3 mm gallbladder wall.There was no right upper quadrant tenderness during the sonographic examination. Correlation with patient's pain medication status is recommended. Common bile duct: Prominent common bile duct measuring 6 mm. Pancreas: The pancreas is not well-seen. Right kidney: The right kidney measures 9.8 x 3.99 x 5.39 cm. No stones. No hydronephrosis. Aorta: The proximal aorta measures 1.5 cm. No aneurysm. Inferior vena cava: IVC seen. IMPRESSION: 1. Partially contracted gallbladder with gallstones and 3 mm gallbladder wall.There was no right upper quadrant tenderness during the sonographic examination. Correlation with patient's pain medication status is recommended. 2. Prominent common bile duct measuring 6 mm for patient's age.
--- NOTE | 2017-09-18 01:50 | C.PDOC ---
Time Seen by Provider: 09/17/17 20:44 Chief Complaint (Nursing): Abdominal Pain History Per: Patient, Family Onset/Duration Of Symptoms: Hrs (this evening) Current Symptoms Are (Timing): Still Present Severity: Moderate Location Of Pain/Discomfort: Epigastric Quality Of Discomfort: Unable To Describe, "Pain" Associated Symptoms: Nausea Alleviating Factors: None Additional History Per: Prior Records Past Medical History Reviewed: Historical Data, Nursing Documentation, Vital Signs Vital Signs: Last Vital Signs Temp 97.4 F L 09/18/17 01:21 Pulse 68 09/18/17 01:21 Resp 18 09/18/17 01:21 BP 93/60 L 09/18/17 01:21 Pulse Ox 99 09/18/17 01:21 - Medical History PMH: Gall Bladder Disease Other Surgeries: ERCP - [facility] Procedures DILATION OF COMMON BILE DUCT WITH INTRALUMINAL DEVICE, ENDO (01/31/17) EXTIRPATION OF MATTER FROM COMMON BILE DUCT, ENDO (01/31/17) Family History: States: Unknown Family Hx - Social History Hx Tobacco Use: No Hx Alcohol Use: No Hx Substance Use: No - Immunization History Hx Tetanus Toxoid Vaccination: No Hx Influenza Vaccination: No Hx Pneumococcal Vaccination: No Review Of Systems Except As Marked, All Systems Reviewed And Found Negative. Constitutional: Negative for: Fever, Weakness Cardiovascular: Negative for: Chest Pain Respiratory: Negative for: Shortness of Breath Gastrointestinal: Positive for: Nausea, Abdominal Pain. Negative for: Vomiting , Diarrhea, Melena, Hematochezia, Hematemesis Genitourinary: Negative for: Dysuria Musculoskeletal: Negative for: Neck Pain Skin: Negative for: Rash Neurological: Negative for: Weakness, Numbness Physical Exam - Physical Exam Appears: Non-toxic, No Acute Distress Skin: Normal Color, Warm, Dry, No Rash Head: Atraumatic, Normacephalic Eye(s): bilateral: Normal Inspection, PERRL, EOMI Neck: Normal ROM, Supple Cardiovascular: Rhythm Regular Respiratory: Normal Breath Sounds, No Accessory Muscle Use Gastrointestinal/Abdominal: Soft, Tenderness (mild epigastric), No Distention, No Guarding, No Rebound Back: No CVA Tenderness Extremity: Normal ROM Neurological/Psych: Oriented x3, Normal Motor, Normal Sensation ED Course And Treatment - Laboratory Results Result Diagrams: 09/17/17 21:06 09/17/17 21:06 Urine POC: Negative O2 Sat by Pulse Oximetry: 99 Pulse Ox Interpretation: Normal - CT Scan/US CT abd/pelv Other Rad Studies (CT/US): Read By Radiologist, Radiology Report Reviewed CT/US Interpretation: Contracted gallbladder with stones. Mild central biliary ductal dilation but no CT evidence of a high-grade biliary obstruction. RUQ Sono Other Rad Studies (CT/US): Read By Radiologist, Radiology Report Reviewed CT/US Interpretation: IMPRESSION: 1. Partially contracted gallbladder with gallstones and 3 mm gallbladder. wall.There was no right upper quadrant tenderness during the sonographic. examination. Correlation with patient's pain medication status is recommended. 2. Prominent common bile duct measuring 6 mm for patient's age. Progress Note: Pt feels much better and wants to go home. Abdominal pain resolved. Will d/c home, but I instructed pt to return immediatly if she experiences any worsening of symptoms. Reassessment Condition: Improved Progress - Interventions Interventions:: Observation, Intravenous fluid - Medications Administered Intravenous: Antiemetic, H-2 louisa, NSAID - Data Reviewed Data Reviewed: Lab, Diagnostic imaging, Old records - Patient Status Patient status: Mostly improved - Continuity of Care Discussed patient case with:: Patient, Family-HIPPA compliant, ED Nurse - Patient Plan Patient Plan: Discharge, F/U with PCP Disposition Counseled Patient/Family Regarding: Studies Performed, Diagnosis, Need For Followup, Rx Given - Disposition Referrals: Vicente Whtilock MD [Staff Provider] - [facility] [Outside] Disposition: HOME/ ROUTINE Disposition Time: 01:53 Condition: IMPROVED Additional Instructions: Follow up with a General Surgeon this week for further evaluation and treatment. Return to the ER if you develop fever, vomiting, worsening of symptoms or if you have any other concerns. Prescriptions: Famotidine [Pepcid] 20 mg PO BID #30 tab Instructions: Gallstones (ED) - Clinical Impression Clinical Impression: Cholelithiasis, Epigastric abdominal pain
--- NOTE | 2017-09-18 09:30 | CT ---
PROCEDURE: CT Abdomen and Pelvis with contrast HISTORY: Epigastric pain. h/o choledocholithiasis. COMPARISON: None. TECHNIQUE: Contrast dose: 100 mL Visipaque 320 Radiation dose: Total exam DLP = 273.63 mGy-cm. This CT exam was performed using one or more of the following dose reduction techniques: Automated exposure control, adjustment of the mA and/or kV according to patient size, and/or use of iterative reconstruction technique. FINDINGS: LOWER THORAX: Unremarkable. LIVER: Normal size, contour and attenuation. No mass. Mild central intrahepatic biliary ductal dilatation. GALLBLADDER AND BILE DUCTS: Contracted gallbladder with cholesterol stones and minimal peripheral calcification of some of the stones. Wall thickness cannot be adequately evaluated due to contracted state. No pericholecystic fluid. Common bile duct up to 8 mm diameter. Questionable significance. PANCREAS: Unremarkable. No gross lesion or ductal dilatation. SPLEEN: Unremarkable. ADRENALS: Unremarkable. No mass. KIDNEYS AND URETERS: Unremarkable. No hydronephrosis. No solid mass. VASCULATURE: Unremarkable. No aortic aneurysm. BOWEL: Unremarkable. No obstruction. No gross mural thickening. APPENDIX: Normal appendix. PERITONEUM: Unremarkable. No free fluid. No free air. LYMPH NODES: Unremarkable. No enlarged lymph nodes. BLADDER: Unremarkable. REPRODUCTIVE: Uterus significant for intrauterine device. Probable menstrual cap within the vagina, immediately adjacent to the cervix. BONES: No acute fracture. OTHER FINDINGS: None. IMPRESSION: Contracted gallbladder filled with cholesterol stones, some of which demonstrate peripheral calcification. Minimal gallbladder wall thickening common nonspecific given the contracted status of the gallbladder. Mild central intrahepatic biliary dilatation with dilatation of common bile duct up to 8 mm. Nonspecific. Cannot rule out choledocholithiasis. Intrauterine device noted. Menstrual cap noted. Otherwise unremarkable examination. Preliminary interpretation of this examination was reported by [facility] at 11:16 p.m. on 09/17/2017. There is concurrence of this report with the preliminary interpretation.
== END 2017-09-18 02:11 | disposition home or self-care (01) ==
LOC: C.ER 20:32
DX: K80.20 Calculus of gallbladder without cholecystitis without obstruction (principal); R10.13 Epigastric pain
CPT/HCPCS: 74177; 76705; 80053; 81001; 83690; 84703; 85025; 96361; 96374; 96375; 99284; J1885; J2765; J7040; Q9967